=== PATIENT | male | born 1955 | race Caucasian/White ===

== ENCOUNTER 2016-07-07 17:25 | Emergency (ER) | payer OTHER ==
[~2016-07-07] VITALS: Ht 182.9 cm; Wt 110.0 kg
[~2016-07-07 17:25] MED LIST: ASPI325T32 PO; AZIT250T94 PO; CHOL20003 PO; CLOP75TA27 PO; EMPA1TAB3 PO; GLIM4TAB PO; GLUC100015 PO; HYDR-906 PO; IBUP-1542 PO; INSU100C SC; LEVEM SC; LISI-313 PO; METF1000 PO; METO-448 PO; OMEG-135 PO; OMEG500C PO; ROSU5TAB5 PO; SITA100T8 PO
[2016-07-07 17:27] VITALS: Ht 182.9 cm; Wt 110.0 kg
[2016-07-07] MEDS ORDERED: SOD CHLORIDE 0.9% 1,000 ML IV ONE (17:46)
[2016-07-07] MEDS ORDERED: KETOROLAC 30 MG INJ IV STA (17:46)
[2016-07-07 18:16] LABS: ADD SCAN DIFF NO
[2016-07-07 18:21] LABS: BASOPHIL # 0.1 10^3/ul (0.0-0.1); BASOPHILS % 0.6 % (0.0-2.0); EOSINOPHILS # 0.2 10^3/ul (0.0-0.5); EOSINOPHILS % 2.7 % (0.0-7.0); HEMOGLOBIN 16.8 g/dl (14.0-18.0); LYMPHOCYTES # 0.8 10^3/ul (0.8-2.9); LYMPHOCYTES % 8.6 % (15.0-51.0); MEAN CORPUSCULAR HEMOGLOBIN 31.3 pg (29.0-33.0); MEAN CORPUSCULAR HGB CONC 33.6 g/dl (32.0-37.0); MEAN CORPUSCULAR VOLUME 93.3 fl (82.0-101.0); MEAN PLATELET VOLUME 9.3 fl (7.4-10.4); MONOCYTES % 10.8 % (0.0-11.0); NEUTROPHIL # 6.8 10^3/ul (1.6-7.5); PLATELET COUNT 205 10^3/UL (140-415); RED BLOOD COUNT 5.36 10^6/ul (4.70-6.10); RED CELL DISTRIBUTION WIDTH 12.9 % (11.5-14.5); WHITE BLOOD COUNT 8.8 10^3/ul (4.8-10.8)
[2016-07-07 18:38] LABS: ALBUMIN 4.7 g/dl (3.3-4.9)
[2016-07-07 18:41] LABS: BILIRUBIN,INDIRECT 0.4 mg/dl (0-1.1); BILIRUBIN,TOTAL 0.4 mg/dl (0.2-1.3); CREATININE 1.13 mg/dl (0.61-1.24)
[2016-07-07 18:42] LABS: ALBUMIN/GLOBULIN RATIO 1.09; CALCIUM 9.9 mg/dl (8.4-10.2)
--- NOTE | 2016-07-07 18:45 | RADRPT ---
PROCEDURE: XR Chest 1 View. CLINICAL INDICATION: Shortness of breath. TECHNIQUE: AP view of the chest was obtained. COMPARISON: None. FINDINGS: The cardiomediastinal silhouette is within normal limits. Mild elevation right hemidiaphragm is iden tified. Subsegmental atelectasis is seen in the bilateral lower lobes. No consolidations are identi fied. No pneumothorax is seen. Osseous structures are intact. IMPRESSION: Mild elevation right hemidiaphragm. Subsegmental atelectasis in the bilateral lower lobes. RPTAT: AA .Andrzej Johnson MD, MD Date Time Electronically viewed and signed by .Andrzej Johnson MD, MD on 07/07/2016 18:44 .P/
[2016-07-07] MEDS ORDERED: IBUP-1542 PO (18:54)
[2016-07-07] MEDS ORDERED: PROM5SYR2 PO (18:54)
[2016-07-07] MEDS ORDERED: AZIT250T94 PO (18:55)
--- NOTE | 2016-07-07 18:58 | ERD ---
ER Documentation Chief Complaint Date/Time DATE: 07/07/16 TIME: 18:56 Chief Complaint flu like symptoms x 10 days, fever, cough,body aches HPI This 6-year-old male complains of cough for last 10 days. He does have a fever with body aches worsening over the last 3 days. Denies any sustained chest pain , vomiting, abdominal pain. He has body aches as well as bitemporal headache. ROS All systems reviewed and are negative except as per history of present illness. Medications Home Meds Active Scripts Azithromycin* (Zithromax*) 250 Mg Tablet, 250 MG PO .MarcPAROSETTA DIRECTED, #6 TAB TAKE 500 MG (2 TABS) THE FIRST DAY THEN 250 MG (1 TAB) DAYS 2-5 Prov:OLGA LEIJA MD 07/07/16 Promethazine HCl/Codeine (Prometh-Codein 6.25-10 mg/5 ml) 5 Ml Syrup, 5 ML PO TID for 4 Days 4 oz Prov:OLGA LEIJA MD 07/07/16 Ibuprofen* (Motrin*) 600 Mg Tab, 600 MG PO Q6, #20 TAB Prov:OLGA LEIJA MD 07/07/16 Ibuprofen* (Motrin*) 600 Mg Tab, 600 MG PO Q6H Y for PAIN AND OR ELEVATED TEMP, #30 TAB Prov:AZALEA SUE 01/10/16 Hydrocodone/Acetaminophen ([place] 5-325 Tablet) 1 Each Tablet, 1 TAB PO Q6H Y for PAIN, #7 TAB Prov:AZALEA SUE 01/10/16 Azithromycin* (Zithromax*) 250 Mg Tablet, 250 MG PO .MarcPAROSETTA DIRECTED, #6 TAB TAKE 500 MG (2 TABS) THE FIRST DAY THEN 250 MG (1 TAB) DAYS 2-5 Prov:AZALEA SUE 01/10/16 Fish Oil* (Fish Oil*) 1,000 Mg Cap, 1000 MG PO BID for 14 Days, CAP Prov:VIJAY CRAIG MD 07/16/15 Lisinopril* (Lisinopril*) 5 Mg Tablet, 5 MG PO DAILY, #30 TAB Prov:MELLY ESCOBEDO 07/10/15 Aspirin (Aspir-Lena) 325 Mg Tablet.dr, 325 MG PO DAILY for 30 Days, #30 Prov:SADEORA,MELLY 07/10/15 Metoprolol Tartrate* (Lopressor*) 25 Mg Tab, 25 MG PO BID for 30 Days, #60 TAB Prov:MELLY ESCOBEDO 07/10/15 Clopidogrel Bisulfate (Clopidogrel) 75 Mg Tablet, 75 MG PO DAILY for 30 Days, # 30 TAB Prov:MELLY ESCOBEDO 07/10/15 Reported Medications Glucosamine Sulfate 2KCL (GLUCOSAMINE) 1,000 Mg Tablet, 2000 MG PO DAILY, TAB 07/15/15 Metformin Hcl* (Metformin Hcl*) 1,000 Mg Tablet, 1000 MG PO WITH BREAKFAST DINNE , #60 TAB 07/15/15 [place]-3 Fatty Acids (Fish Oil) 500 Mg Capsule.dr, 1000 MG PO TID 07/10/15 Ibuprofen* (Ibuprofen*) 600 Mg Tablet, 600 MG PO Q6 for PAIN LEVEL 1-3, TAB 07/10/15 Empagliflozin/Linagliptin (Glyxambi 10 mg-5 mg Tablet) 1 Each Tablet, 1 EACH PO DAILY, TAB 07/10/15 Rosuvastatin Calcium* (Crestor*) 5 Mg Tablet, 1 TAB PO QHS, #30 TAB 07/10/15 Insulin Lispro (Humalog) 100 U/Ml Cartridge, 0 SC SLIDING SCALE AC, EA 05/04/14 Insulin Detemir* (Levemir*) 100 U/Ml Vial, 30 UNIT SC DAILY, VIAL 05/04/14 Sitagliptin* (Januvia*) 100 Mg Tablet, 100 MG PO DAILY, TAB 05/04/14 Cholecalciferol (Vitamin D3) (VITAMIN D-3) 2,000 Unit Capsule, 2000 UNIT PO DAILY 05/04/14 Glimepiride* (Glimepiride*) 4 Mg Tablet, 4 MG PO WITH BREAKFAST DINNE, TAB 05/04/14 Allergies Allergies: Coded Allergies: No Known Allergy (Unverified , 01/10/16) PMhx/Soc History of Surgery: Yes (STENT PLACEMENT) Anesthesia Reaction: No Hx Neurological Disorder: Yes (BELLS PALSY) Hx Respiratory Disorders: No Hx Cardiac Disorders: Yes (HTN, STEMI ) Hx Psychiatric Problems: Yes (DEPRESSION) Hx Miscellaneous Medical Probl: Yes (TYPE 2 DM) Hx Alcohol Use: No Hx Substance Use: No Hx Tobacco Use: No Physical Exam Vitals Vital Signs Date Time Temp Pulse Resp B/P Pulse Ox O2 Delivery O2 Flow Rate FiO2 07/07/16 17:27 100.9 100 20 159/83 99 Physical Exam Const: [] Alert, no apparent distress although uncomfortable due to presumed general malaise per Head: Atraumatic Eyes: Normal Conjunctiva ENT: Normal External Ears, Nose and Mouth. TMs and oropharynx normal. Neck: Full range of motion..~ No meningismus. Resp: Clear to auscultation bilaterally. Slight rhonchi without rales or wheezing appreciated. Cardio: Regular rate and rhythm, no murmurs Abd: Soft, non tender, non distended. Normal bowel sounds Skin: No petechiae or rashes Back: No midline or flank tenderness Ext: No cyanosis, or edema Neur: Awake and alert Psych: Normal Mood and Affect Result Diagram: 07/07/16174407/07/161744 Results 24 hrs Laboratory Tests Test 07/07/16 17:45 White Blood Count 8.810^3/ul Red Blood Count 5.3610^6/ul Hemoglobin 16.8g/dl Hematocrit 50.0% Mean Corpuscular Volume 93.3fl Mean Corpuscular Hemoglobin 31.3pg Mean Corpuscular Hemoglobin Concent 33.6g/dl Red Cell Distribution Width 12.9% Platelet Count 65046^3/UL Mean Platelet Volume 9.3fl Neutrophils % 77.0% Lymphocytes % 8.6% Monocytes % 10.8% Eosinophils % 2.7% Basophils % 0.6% Nucleated Red Blood Cells % 0.0/100WBC Neutrophils # 6.810^3/ul Lymphocytes # 0.810^3/ul Monocytes # 1.010^3/ul Eosinophils # 0.210^3/ul Basophils # 0.110^3/ul Nucleated Red Blood Cells # 0.010^3/ul Sodium Level 141mmol/L Potassium Level 4.0mmol/L Chloride Level 98mmol/L Carbon Dioxide Level 26mmol/L Anion Gap 21 Blood Urea Nitrogen 19mg/dl Creatinine 1.13mg/dl Glucose Level 110mg/dl Calcium Level 9.9mg/dl Total Bilirubin 0.4mg/dl Direct Bilirubin 0.00mg/dl Indirect Bilirubin 0.4mg/dl Aspartate Amino Transf (AST/SGOT) 41IU/L Alanine Aminotransferase (ALT/SGPT) 42IU/L Alkaline Phosphatase 115IU/L Total Protein 9.0g/dl Albumin 4.7g/dl Globulin 4.30g/dl Albumin/Globulin Ratio 1.09 Current Medications Medications (Trade) Dose Ordered Sig/Edwige Route PRN Reason Start Time Stop Time Status Last Admin Dose Admin Ketorolac Tromethamine 30 mg 30 mg ONCE STAT IV 07/07/16 17:46 07/07/16 17:49 DC 07/07/16 17:57 Sodium Chloride (NS) 1,000 ml @ 0 mls/hr Q0M ONCE IV 07/07/16 17:46 07/07/16 17:49 DC 07/07/16 17:58 Procedures/MDM EKG: Rate/Rhythm: [Normal Sinus Rhythm] rate equals 101 QRS, ST, T-waves: [No changes consistent w/ acute ischemia] Impression: [No evidence of ischemia or arrhythmia]. Patient have a normal EKG except for mild sinus tachycardia. Chest X-ray 1V Interpreted by me: Soft Tissue: No acute abnormalities Bones: No acute abnormalities Mediastinum/Cardiac Silhouette/Lungs: [No acute abnormalities]. Impression- no acute findings on chest x-ray. Patient's tachycardia febrile illness and duration of symptoms and uncomfortable appearance and IV was obtained. Patient was given 1 L normal saline IV, CBC is normal shows a viral pattern. CMP is normal. Blood cultures 2 pending. Patient felt better after observation treatment. Patient presents with worsening fever and URI symptoms over the last 10 days. Examination today is consistent with an acute viral illness also given duration will be treated with Zithromax and continued fever control. There is no evidence of hypoxemia or respiratory distress and tachycardia likely due to low-grade fever triage without evidence of sepsis after observation treatment. The patient was stable with no new complaints during the ER course. Clinically, there is no current evidence to suggest meningitis, sepsis, acute abdomen, pneumonia, acute coronary syndrome, pulmonary embolism, or any other emergent condition appearing to require further evaluation or hospitalization. The patient should certainly return for any new or worsening symptoms per the aftercare instructions. They should otherwise follow-up with her primary care doctor for reevaluation this week. Departure Diagnosis: Primary Impression: Fever Fever type: unspecified Qualified Code: R50.9 - Fever, unspecified fever cause Additional Impression: Upper respiratory infection URI type: unspecified URI Qualified Code: J06.9 - Upper respiratory tract infection, unspecified type Patient Instructions: Acute Bronchitis, Fever Control (Adult), Influenza (Adult ) Additional Instructions: Labs to suggest viral illness such as influenza. We will treat for bacterial infection given the duration. Recheck with primary doctor or for new or worsening symptoms. Okay to take Tylenol every 4 hours as well for fever per OLGA LEIJA MD July 07, 2016 18:58
[2016-07-07 19:11] VITALS: BP 136/67; PULSE 95; RESP 20; TEMP 98.9
== END 2016-07-07 19:10 | disposition home or self-care (01) ==
LOC: FTE 17:25
DX: R50.9 Fever, unspecified (principal); J06.9 Acute upper respiratory infection, unspecified; I10 Essential (primary) hypertension; E11.9 Type 2 diabetes mellitus without complications; Z79.01 Long term (current) use of anticoagulants; Z79.4 Long term (current) use of insulin; Z79.82 Long term (current) use of aspirin; Z79.84 Long term (current) use of oral hypoglycemic drugs; Z98.61 Coronary angioplasty status
CPT/HCPCS: 36415; 71010; 80053; 85025; 87040; 93005; 96374; J1885; J7030; Z7502

== ENCOUNTER 2017-01-28 19:26 | Inpatient (IN) | payer OTHER ==
[~2017-01-28] VITALS: Ht 182.9 cm; Wt 110.3 kg
[~2017-01-28 19:26] MED LIST changes: -CHOL20003 PO; +CHOL200073 PO; +PROM5SYR2 PO
--- NOTE | 2017-01-28 21:53 | HP ---
Date/Time of Note Date/Time of Note DATE: 01/28/17 TIME: 21:52 Assessment/Plan VTE Prophylaxis VTE Prophylaxis Intervention: SCD's Assessment/Plan Chief Complaint/Hosp Course This is a 61-year-old male being admitted to the telemetry floor for: #1 chest pain: Rule out ACS. Patient has CAD risk factors as well as previous angioplasty. At the current time will trend cardiac troponins, first set at the transferring facility was negative. Will check an echocardiogram in the a.m. Will consult patient's animal pathology teacher Dr. Ibrahim. #2 CAD: Patient has a history of angioplasty one stent. At the current time we will continue aspirin, beta-rhea, Plavix, statin. Will provide as needed nitro and morphine for pain. #3 Hyperlipidemia: Check lipid panel, will continue statin #4 diabetes mellitus: At the current time will hold patient's oral medications. Will put patient on insulin sliding scale, diabetic diet #5 obstructive sleep apnea: Patient is requesting if he can use his home CPAP machine the family will bring in this is fine with me. #6 DVT GI prophylaxis: SCDs, no GI prophylaxis indicated for the treatment strategy will be implemented as per the clinical course Problems: HPI/ROS Admit Date/Time Admit Date/Time Jan 28, 2017 at 21:13 Hx of Present Illness cc: Chest pain 1 day This is a 61-year-old male who was transferred from [facility] complaining of chest pain. Patient stated that he was shopping earlier in the day and started feeling pain in his epigastric area that then radiated up and across to the left and right chest into his back. He stated that the pain continued for some time until he arrived at the ER at [facility]. The pain went away on its own without any medication. He stated the pain was sharp in nature similar to when he first had his heart attack last year however the pain was not as intense today as it was last year. He denies any diaphoresis or shortness of breath or lower extremity edema. Allergies: NKDA Medications: See ROBERT ECHEVARRIA Const: As per HPI Eyes : No pain discharge or redness or change in visual acuity ENT: No pain, sore throat, congestion, congestion, dysphagia or discharge Respiratory: No shortness of breath, cough, sputum, wheezing, or pleuritic pain Cardiovascular: As per HPI GI : no change in appetite, abdominal pain, nausea, vomiting, diarrhea, constipation, or change in the color his stool Genitourinary: No dysuria, hematuria, flank pain , discharge or CVA tenderness Musculoskeletal: No joint pain, back pain, neck pain, restricted range of motion in neck or joints Skin: No rash, bruising or hives Neuro: No headache, dizziness, syncope, seizure, focal weakness Endocrine: No polyuria, polydipsia, temperature intolerance Psych: No hallucination, depression, anxiety or suicidal ideation PMH/Family/Social Past Medical History cad, dm, tamia, hld, Past Surgical History cardiac stent x 1, umbilical hernia repair Family History Significant Family History: no pertinent family hx Social History Alcohol Use: none Smoking Status: Never smoker Drug Use: none Exam/Review of Systems Exam Exam General: This is a pleasant, obese male lying in bed in no acute distress HEENT: Atraumatic, normocephalic. The pupils are equal, round and reactive. Extraocular motor are intact Neck: Supple with full range of motion. No rigidity or meningismus Chest: Nontender Lungs: Clear to auscultation bilaterally no crackles rales or wheezing Heart: Normal S1-S2, Regular rhythm and rate. No overt murmurs appreciated on auscultation Abdomen: Soft , nontender, nondistended , bowel sounds are present. No guarding no rebound tenderness , No masses or organomegaly. No costovertebral temporal angle mass Extremities: Trace lower extremity edema at the level of the ankles Neurologic: Normal mental status, speech normal, cranial nerves II through XII are intact, motor and sensory are intact, no focal weakness Additional Comments Pertinent laboratory findings from transferring facility are below, please see transfer documentation for full report. Troponin: First set negative EKG: Normal sinus rhythm with no overt ST or T-wave normality noted Chest x-ray: No acute process, cardiomegaly CHARLES VIEYRA Jan 28, 2017 21:53
[2017-01-28 22:00] VITALS: BP 145/78; RESP 18
[2017-01-28] MEDS ORDERED: DOCUSATE SODIUM 100 MG CAP PO PRN (22:00)
[2017-01-28] MEDS ORDERED: ONDANSETRON 4 MG TAB PO PRN (22:00)
[2017-01-28] MEDS ORDERED: morphine 2 MG INJ IV PRN (22:00)
[2017-01-28] MEDS ORDERED: NACL 0.9% 3 ML SYG IV SCH (22:00)
[2017-01-28] MEDS ORDERED: ACETAMINOPHEN 325 MG TAB PO PRN (22:00)
[2017-01-28] MEDS ORDERED: BISACODYL (EC) 5 MG TAB PO PRN (22:00)
[2017-01-28] MEDS ORDERED: NITROGLYCERIN (SL) 0.4 MG TAB SL PRN (22:00)
[2017-01-28 22:03] VITALS: Ht 182.9 cm; Wt 110.3 kg
[2017-01-28 22:28] VITALS: PULSE 87
[2017-01-28 22:41] LABS: BASOPHIL # 0.1 10^3/ul (0.0-0.1); BASOPHILS % 1.1 % (0.0-2.0); EOSINOPHILS # 0.4 10^3/ul (0.0-0.5); EOSINOPHILS % 5.8 % (0.0-7.0); HEMATOCRIT 43.9 % (42.0-52.0); HEMOGLOBIN 14.9 g/dl (14.0-18.0); LYMPHOCYTES # 1.5 10^3/ul (0.8-2.9); LYMPHOCYTES % 24.4 % (15.0-51.0); MEAN CORPUSCULAR HEMOGLOBIN 31.2 pg (29.0-33.0); MEAN CORPUSCULAR HGB CONC 33.9 g/dl (32.0-37.0); MEAN CORPUSCULAR VOLUME 91.8 fl (82.0-101.0); MEAN PLATELET VOLUME 9.5 fl (7.4-10.4); MONOCYTE # 0.6 10^3/ul (0.3-0.9); MONOCYTES % 9.6 % (0.0-11.0); NEUTROPHIL # 3.6 10^3/ul (1.6-7.5); NEUTROPHILS % 58.6 % (39.0-77.0); PLATELET COUNT 167 10^3/UL (140-415); RED BLOOD COUNT 4.78 10^6/ul (4.70-6.10); RED CELL DISTRIBUTION WIDTH 13.3 % (11.5-14.5); WHITE BLOOD COUNT 6.2 10^3/ul (4.8-10.8)
[2017-01-28 23:04] LABS: CREATINE KINASE 158 IU/L (23-200)
[2017-01-28 23:06] LABS: ALBUMIN 4.4 g/dl (3.3-4.9); ALBUMIN/GLOBULIN RATIO 1.46; BILIRUBIN,INDIRECT 0.2 mg/dl (0-1.1); BILIRUBIN,TOTAL 0.2 mg/dl (0.2-1.3); CALCIUM 9.5 mg/dl (8.4-10.2); CHOL/HDL RATIO 4.2 RATIO; CREATININE 1.1 mg/dl (0.61-1.24); MAGNESIUM 2.1 mg/dl (1.7-2.5); POTASSIUM 4.5 mmol/L (3.5-5.1); TOTAL PROTEIN 7.4 g/dl (6.1-8.1)
[2017-01-28 23:19] LABS: CK-MB 1.29 ng/ml (0.0-2.4); TROPONIN-I < 0.012 ng/ml (0.00-0.12)
[2017-01-29] VITALS (11 sets, daily range): BP systolic 123–140; BP diastolic 57–78; PULSE 68–91; RESP 17–20
[2017-01-29 00:05] LABS: THYROID STIMULATING HORMONE 2.15 MIU/L (0.465-4.680)
[2017-01-29] MEDS ORDERED: GLUCOSE GEL 15 GRAM TUBE PO PRN ×2 (00:30)
[2017-01-29] MEDS ORDERED: GLUCAGON 1 MG INJ IM PRN (00:30)
[2017-01-29] MEDS ORDERED: DEXTROSE 50% 50 ML SYRINGE IV PRN ×2 (00:30)
[2017-01-29] MEDS ORDERED: GLUCOSE GEL 15 GRAM TUBE BUCCAL PRN (00:30)
[2017-01-29] MEDS: INSULIN DETEMIR [LEVEMIR] 3ML CART SC SCH (01:11)
[2017-01-29] MEDS: INSULIN ASPART [NOVOLOG] 3 ML PEN SC SCH ×5 (01:14→21:00)
[2017-01-29] MEDS: ACCU-CHEK XX SCH (02:37)
[2017-01-29 04:51] LABS: CREATINE KINASE 158 IU/L (23-200)
[2017-01-29 05:23] LABS: CK-MB 1.41 ng/ml (0.0-2.4); TROPONIN-I < 0.012 ng/ml (0.00-0.12)
[2017-01-29] MEDS ORDERED: INSULIN ASPART [NOVOLOG] 3 ML PEN SC SCH (07:55)
[2017-01-29] MEDS: METOPROLOL 25 MG TAB PO SCH ×2 (08:46→21:18)
[2017-01-29] MEDS: CLOPIDOGREL 75 MG TAB PO SCH (08:46)
[2017-01-29] MEDS: ASPIRIN (EC) 325 MG TAB PO SCH (08:46)
[2017-01-29] MEDS: FISH OIL 1,000 MG CAP PO SCH ×2 (08:46→21:17)
[2017-01-29] MEDS: CHOLECALCIFEROL 2,000 UNIT CAP PO SCH (08:47)
[2017-01-29] MEDS ORDERED: FATTY ACIDS PO SCH (09:00)
[2017-01-29] MEDS ORDERED: OMEGA PO SCH (09:00)
[2017-01-29] MEDS ORDERED: INSULIN DETEMIR [LEVEMIR] 3ML CART SC SCH (09:00)
--- NOTE | 2017-01-29 11:08 | PN ---
Date/Time of Note Date/Time of Note DATE: 01/29/17 TIME: 11:04 Assessment/Plan VTE Prophylaxis VTE Prophylaxis Intervention: ambulation Lines/Catheters IV C[facility]ter Type [facility] Saline Lock Assessment/Plan Chief Complaint/Hosp Course 61-year-old male who was transferred from outside hospital for evaluation of sudden onset of chest pain. 1. Chest pain. Status: Acute. - Symptoms resolved. EKG negative for any acute ischemia. Serial troponin 2 negative so far. -Continue aspirin to prevent any cardiac ischemic events, PRN nitro and morphine for pain. -Dr. Ibrahim has been consulted and we will follow-up with recommendations. Please note that patient had a recent Lexiscan stress test and we will obtain records for cardiology review. 2. CAD Status: Chronic -Continue current medical management with aspirin, beta-rhea, Plavix, statin. 3.Hyperlipidemia Status: Chronic. -On statin. 4. Type II diabetes mellitus Status: Chronic. -Continue Accu-Cheks/insulin sliding scale. -Carbohydrate controlled diet. 5. Obstructive sleep apnea Status: Chronic. -Continue home CPAP machine 6. Obesity. Status: Chronic -Lifestyle changes/weight reduction advised. DVT GI prophylaxis: SCDs, no GI prophylaxis indicated at this time. Patient is in collaboration with . Problems: Subjective 24 Hr Interval Summary Free Text/Dictation She is lying in bed comfortably. He denies any chest pain, shortness of breath , palpitation or other distress. Exam/Review of Systems Vital Signs Vitals Vital Signs Date Time Temp Pulse Resp B/P Pulse Ox O2 Delivery O2 Flow Rate FiO2 01/29/17 08:17 70 01/29/17 04:05 98.3 20 140/70 95 Intake and Output 01/28/17 01/28/17 01/29/17 15:00 23:00 07:00 Intake Total 600 ml Balance 600 ml Exam General: Well developed,adequately built, not in any acute distress . HEENT: Normocephalic, Atraumatic, No laceration or hematoma; Eyes: PEERL, Conjunctiva clear, Anicteric sclera Neck: Supple without any lymphadenopathy, nontender, no JVD, no carotid bruits, trachea midline, no thyromegaly Cardiac: S1, S2 auscultated, regular rhythm and rate, no mumurs or gallop Pulmonary: Normal respiratory effort. Chest clear to auscultation bilaterally, no adventitious breath sounds GI: Abdomen normal to inspection. Soft, non tender, non- distended, no masses, no rebound tenderness or guarding. Bowel sounds active on all four quadrants Genitourinary: Deferred Extremities: No cyanosis, clubbing, or edema. Pulses [2+] bilaterally. Full ROM on all four extremities. No focal weakness appreciated. Neurologic: Alert to person, place, time, and situation. Affect appropriate, intact sensation. Skin: Clean,dry, and intact. No ecchymosis, no rashes, or lesions Results Result Diagram: 01/28/17222901/28/172230 Results 24 hrs Laboratory Tests Test 01/28/17 22:30 01/28/17 22:31 01/28/17 23:52 01/29/17 01:26 White Blood Count 6.2 # Red Blood Count 4.78 Hemoglobin 14.9 Hematocrit 43.9 Mean Corpuscular Volume 91.8 Mean Corpuscular Hemoglobin 31.2 Mean Corpuscular Hemoglobin Concent 33.9 Red Cell Distribution Width 13.3 Platelet Count 167 Mean Platelet Volume 9.5 Neutrophils % 58.6 Lymphocytes % 24.4 Monocytes % 9.6 Eosinophils % 5.8 Basophils % 1.1 Nucleated Red Blood Cells % 0.0 Neutrophils # 3.6 Lymphocytes # 1.5 Monocytes # 0.6 Eosinophils # 0.4 Basophils # 0.1 Nucleated Red Blood Cells # 0.0 Hemoglobin A1c 7.6 H Creatine Kinase 158 Creatine Kinase Index 0.8 Creatinine Kinase MB (Mass) 1.29 Troponin I < 0.012 B-Type Natriuretic Peptide 36 Sodium Level 143 Potassium Level 4.5 Chloride Level 105 Carbon Dioxide Level 27 Anion Gap 16 Blood Urea Nitrogen 20 Creatinine 1.10 Glucose Level 201 Calcium Level 9.5 Magnesium Level 2.1 Total Bilirubin 0.2 Direct Bilirubin 0.00 Indirect Bilirubin 0.2 Aspartate Amino Transf (AST/SGOT) 41 Alanine Aminotransferase (ALT/SGPT) 59 Alkaline Phosphatase 76 Total Protein 7.4 Albumin 4.4 Globulin 3.00 Albumin/Globulin Ratio 1.46 Triglycerides Level 426 H Cholesterol Level 148 LDL Cholesterol, Calculated 28 HDL Cholesterol 35 Cholesterol/HDL Ratio 4.2 Thyroid Stimulating Hormone (TSH) 2.150 Bedside Glucose 230 H 166 Test 01/29/17 04:17 01/29/17 08:34 Creatine Kinase 158 Creatine Kinase Index 0.9 Creatinine Kinase MB (Mass) 1.41 Troponin I < 0.012 Bedside Glucose 105 Medications Medications Current Medications Ondansetron HCl (Zofran Tab) 4 mg Q6H PRN PO NAUSEA AND/OR VOMITING; Start 01/28/17 at 22:00 Nitroglycerin (Nitroglycerin (Sl Tab) 0.4 Mg) 1 tab Q5M PRN SL CHEST PAIN; Start 01/28/17 at 22:00 Acetaminophen (Tylenol Tab) 650 mg Q6H PRN PO PAIN LEVEL 1-3 OR FEVER; Start 01/28/17 at 22:00 Morphine Sulfate (morphine) 2 mg Q4H PRN IV PAIN LEVEL 7-10; Start 01/28/17 at 22:00 Docusate Sodium (Colace) 100 mg Q12H PRN PO CONSTIPATION; Start 01/28/17 at 22: 00 Bisacodyl (Dulcolax) 5 mg DAILY PRN PO CONSTIPATION; Start 01/28/17 at 22:00 Aspirin (Ecotrin) 325 mg DAILY PO Last administered on 01/29/17 08:46; Admin Dose 325 MG; Start 01/29/17 at 09:00 Cholecalciferol (Vitamin D) 2,000 unit DAILY PO Last administered on 01/29/17 08:47; Admin Dose 2,000 UNIT; Start 01/29/17 at 09:00 Clopidogrel Bisulfate (plaVIX) 75 mg DAILY PO Last administered on 01/29/17 08 :46; Admin Dose 75 MG; Start 01/29/17 at 09:00 Fish Oil (Fish Oil) 1,000 mg BID PO Last administered on 01/29/17 08:46; Admin Dose 1,000 MG; Start 01/29/17 at 09:00 Metoprolol Tartrate (Lopressor) 25 mg BID PO Last administered on 01/29/17 08: 46; Admin Dose 25 MG; Start 01/29/17 at 09:00 Diagnostic Test (Pha) (Accu-Chek) 1 ea 02 XX Last administered on 01/29/17 02: 37; Admin Dose 1 EA; Start 01/29/17 at 02:00 Miscellaneous Information 1 ea NOTE XX ; Start 01/29/17 at 00:30 Glucose (Glutose) 15 gm Q15M PRN PO DECREASED GLUCOSE; Start 01/29/17 at 00:30 Glucose (Glutose) 22.5 gm Q15M PRN PO DECREASED GLUCOSE; Start 01/29/17 at 00: 30 Dextrose (D50w Syringe) 25 ml Q15M PRN IV DECREASED GLUCOSE; Start 01/29/17 at 00:30 Dextrose (D50w Syringe) 50 ml Q15M PRN IV DECREASED GLUCOSE; Start 01/29/17 at 00:30 Glucagon (Glucagen) 1 mg Q15M PRN IM DECREASED GLUCOSE; Start 01/29/17 at 00:30 Glucose (Glutose) 15 gm Q15M PRN BUCCAL DECREASED GLUCOSE; Start 01/29/17 at 00 :30 Insulin Detemir (Levemir) 30 unit DAILY SC ; Start 01/29/17 at 01:11 KRYSTAL PELAYO NP Jan 29, 2017 11:08
--- NOTE | 2017-01-29 14:21 | CONS ---
DATE OF ADMISSION: 01/28/2017 DATE OF CONSULTATION: 01/29/2017 REASON FOR CONSULTATION: Chest pain, assess for acute coronary syndrome. REQUESTING PHYSICIAN: Dr. Jean from the hospitalist service. HISTORY OF PRESENT ILLNESS: The patient is a 61-year-old male with history of coronary artery disea se with myocardial infarction, status post PTCA and stent placement to right coronary artery in June 2015, dyslipidemia, hypertension, diabetes mellitus who presented with complaints of recurrent subst ernal chest pain described as a pressure-like sensation. Upon arrival, temperature of 97.8, blood p ressure 145/78, pulse 81, respiratory rate 18, saturating 100%. Patient's labs showed white count 6 .2, hemoglobin 14.9, platelet count of 167. Sodium 143, potassium 4.5, creatinine 1.1, BUN 20. Tro ponin negative. LDL 28, HDL 35. TSH 2.1. The patient's electrocardiogram revealed sinus rhythm, r ate of 75, normal axis, normal intervals with lateral biphasic T-wave abnormalities. Patient subseq uently admitted to the floor and since admit to the floor, has had additional troponin return negati ve for 2 negative troponins. The patient denies ongoing chest pain. PAST MEDICAL HISTORY: As above in HPI. The patient states that he follows up with her callisthenics instructor , Dr. Amaro is in [place] near his home and has had a stress test in the last 1 to 2 months. MEDICATIONS CURRENTLY IN HOSPITAL 1. Aspirin 325 mg daily. 2. Plavix 75 mg daily. 3. Vitamin D. 4. Fish oil. 5. Metoprolol 25 mg p.o. b.i.d. 6. Insulin sliding scale 7. Zofran p.r.n. 8. Tylenol p.r.n. 9. Morphine p.r.n. 10. Colace p.r.n. 11. Sublingual nitroglycerin p.r.n. ALLERGIES: NO KNOWN DRUG ALLERGIES. SOCIAL HISTORY: No tobacco, ETOH or illicit drug use. FAMILY HISTORY: No history of cardiac or early CAD. REVIEW OF SYSTEMS: As above in HPI. CONSTITUTIONAL: No fevers, chills. PULMONARY: No current shortness of breath. CARDIOVASCULAR: Intermittent chest pain. GASTROINTESTINAL: No vomiting. GENITOURINARY: No hematuria. MUSCULOSKELETAL: Degenerative joint disease. PSYCHIATRIC: The patient has depression. NEUROLOGIC: No documented history of CVA. PHYSICAL EXAMINATION VITAL SIGNS: Temperature of 98.7, blood pressure 120/70, pulse 76, respiratory rate 17, saturating 96%. GENERAL: The patient is alert, awake, complaining of intermittent substernal chest pain. NECK: JVP approximately 8 cm water. CHEST: Fair air movement throughout. HEART: Regular rate and rhythm. Normal S1, S2, 1/6 systolic murmur, nondisplaced PMI. ABDOMEN: Positive bowel sounds, soft. EXTREMITIES: No pitting edema, 1+ pulses bilaterally, posterior tibial. LABORATORY DATA: As above in HPI. No further labs for my review at this time. IMAGING STUDIES: As above in HPI. No imaging studies for my review at this time. ECG: As above in HPI. No further electrocardiograms for my review at this time. IMPRESSION: 1. Chest pain, assess for acute coronary syndrome. 2. Abnormal electrocardiogram, assess for acute coronary syndrome. 3. History of percutaneous transluminal coronary angioplasty and stent placement 06/2015 to right c oronary artery. 4. History of myocardial infarction with most recently preserved left ventricular ejection fraction by echo at that time approximately 1 year prior. 5. Diabetes mellitus. 6. Hypertension. 7. Dyslipidemia. RECOMMENDATIONS: 1. At this time would maintain patient on telemetry monitoring to follow the rhythm and rate closel y. 2. Continue the patient's current beta rhea and will give patient sublingual nitroglycerin for r ecurrent chest pain and continue the patient's dual antiplatelet therapy with aspirin and Plavix for stent patency and prevention of further cardiovascular events. 3. Check a fasting lipid panel and initiate patient on statin therapy as necessary. 4. Continue the patient's fish oil. 5. Follow the patient's blood sugars closely with ongoing insulin therapy. 6. We will follow the patient's 2D echo for assessment of ejection fraction, wall motion and any ma magen valve abnormalities. 7. We will complete the patient's rule out for myocardial infarction to ensure the patient's chest pain was not due to an acute coronary syndrome or acute myocardial infarction. 8. Followup troponin. 9. Will attempt to obtain the patient's stress test done at his primary callisthenics instructor's office for xavi choi. Thanks for allowing me take part in the care of this patient. I will continue to follow very closel y with you and further recommendations to be made as the patient progresses through his inpatient [facility] clinical course. Dictated By: LEXIE CASTRO/MARY Conf#: [id number] DID#: [id number] CC: CASIMIRO JEAN MD;*EndCC*
--- NOTE | 2017-01-29 14:32 | RADRPT ---
Echocardiogram Report Patient Name: JEB DIANA Gender: Male Date: 1955 Study Date: 29-Jan-2017 Night Order Selector: Lois Barahona [facility] Location: [id number] Ref. Physician: CHARLES VIEYRA Quality: Adequate Procedures: Transthoracic echocardiogram with complete 2D, M-Mode, and doppler examination. Indications: Chest Pain. 2D/M Mode Doppler Measurement Value Normal Ranges Measurement Value Normal Ranges LVIDd 2D 4.4 3.5 - 5.6 cm AV Peak Armen 1.2 m/sec LVIDs 2D 2.5 2.1 - 4.1 cm AV Peak PG 5.8 mmHg LVPWd 2D 1.1 0.6 - 1.1 cm LVOT Peak Armen 1.0 m/sec IVSd 2D 1.1 0.6 - 1.1 cm LVOT Peak PG 3.7 mmHg AoR Diam 2D 3.8 2.0 - 3.7 cm MV E Peak Armen 0.8 m/sec EDV 2D 87.2 cm3 MV A Peak Armen 0.7 m/sec ESV 2D 14.8 cm3 MV E/A 1.1 LA Dimen 2D 3.2 2.3 - 4.0 cm MV Decel Time 222 msec MV Decel Duchesne 4 MV E/A 1.1 TR Peak Armen 2.6 m/sec TR Peak PG 26.5 mmHg RVSP 30.0 mmHg Findings Left Ventricle: Normal left ventricular systolic function. Normal left ventricular cavity size. Mild concentric left ventricular hypertrophy. Ejection fraction is visually estimated at 60 %. Tissue Doppler/Mitral Doppler indices are within normal limits. Right Ventricle: Normal right ventricular size. Normal right ventricular systolic function. Left Atrium: The left atrium is normal in size. Right Atrium: The right atrium is normal in size. Mitral Valve: Normal appearance and function of the mitral valve with trace physiologic regurgitation. Aortic Valve: Normal appearance of the aortic valve. No significant aortic stenosis or insufficiency. Tricuspid Valve: Normal appearance of the tricuspid valve. Estimated peak PA systolic pressure 30 mmHg. There is trace tricuspid regurgitation. Pulmonic Valve: Normal pulmonic valve appearance. Pericardium: Normal pericardium with no significant pericardial effusion. Aorta: Normal aortic root. IVC: Normal size and normal respiratory collapse consistent with normal right atrial pressure. Conclusions 1.Normal left ventricular systolic function. Normal left ventricular cavity size. Mild concentric left ventricular hypertrophy. Ejection fraction is visually estimated at 60 %. Tissue Doppler/Mitral Doppler indices are within normal limits. 2.Normal appearance and function of the mitral valve with trace physiologic regurgitation. 3.Normal appearance of the tricuspid valve. Estimated peak PA systolic pressure 30 mmHg. There is trace tricuspid regurgitation. Electronically Signed By: Cooper Ibrahim 29-Jan-2017 14:32:31 -0800 Patient Name: JEB DIANA Study Date: 29-Jan-2017 [id number]
[2017-01-30] VITALS (7 sets, daily range): BP systolic 115–134; BP diastolic 71–77; PULSE 69–75; RESP 17–21
[2017-01-30] MEDS: ACCU-CHEK XX SCH (02:00)
[2017-01-30] MEDS: INSULIN ASPART [NOVOLOG] 3 ML PEN SC SCH ×2 (07:55→12:26)
[2017-01-30 08:09] LABS: BASOPHIL # 0.1 10^3/ul (0.0-0.1); EOSINOPHILS # 0.3 10^3/ul (0.0-0.5); EOSINOPHILS % 5.8 % (0.0-7.0); HEMATOCRIT 42.9 % (42.0-52.0); HEMOGLOBIN 14.6 g/dl (14.0-18.0); LYMPHOCYTES # 1.5 10^3/ul (0.8-2.9); LYMPHOCYTES % 25.3 % (15.0-51.0); MEAN CORPUSCULAR HEMOGLOBIN 30.9 pg (29.0-33.0); MEAN CORPUSCULAR VOLUME 90.9 fl (82.0-101.0); MEAN PLATELET VOLUME 9.9 fl (7.4-10.4); MONOCYTE # 0.5 10^3/ul (0.3-0.9); MONOCYTES % 8.8 % (0.0-11.0); NEUTROPHIL # 3.5 10^3/ul (1.6-7.5); NEUTROPHILS % 58.8 % (39.0-77.0); PLATELET COUNT 164 10^3/UL (140-415); RED BLOOD COUNT 4.72 10^6/ul (4.70-6.10); RED CELL DISTRIBUTION WIDTH 13.2 % (11.5-14.5); WHITE BLOOD COUNT 5.9 10^3/ul (4.8-10.8)
[2017-01-30 08:32] LABS: CALCIUM 9.2 mg/dl (8.4-10.2); CREATININE 1.02 mg/dl (0.61-1.24); POTASSIUM 3.8 mmol/L (3.5-5.1)
[2017-01-30 08:33] LABS: CHOL/HDL RATIO 3.9 RATIO
[2017-01-30] MEDS: FISH OIL 1,000 MG CAP PO SCH (09:23)
[2017-01-30] MEDS: CHOLECALCIFEROL 2,000 UNIT CAP PO SCH (09:24)
[2017-01-30] MEDS: METOPROLOL 25 MG TAB PO SCH (09:24)
[2017-01-30] MEDS: ASPIRIN (EC) 325 MG TAB PO SCH (09:24)
[2017-01-30] MEDS: CLOPIDOGREL 75 MG TAB PO SCH (09:24)
[2017-01-30] MEDS: INSULIN DETEMIR [LEVEMIR] 3ML CART SC SCH (09:44)
--- NOTE | 2017-01-30 11:31 | CONS ---
Date/Time of Note Date/Time of Note DATE: 01/30/17 TIME: 11:29 Assessment/Plan Assessment/Plan Additional Assessment/Plan 1. Chest pain, assess for acute coronary syndrome r/o MD, - per Dr. Amaro pt had SPECt normal 07/2016 - OK to d/c with outpt f/up with Dr. Amaro next week. 2. Abnormal electrocardiogram, assess for acute coronary syndrome. 3. History of percutaneous transluminal coronary angioplasty and stent placement 06/2015 to right coronary artery. 4. History of myocardial infarction with most recently preserved left ventricular ejection fraction by echo at that time approximately 1 year prior. 5. Diabetes mellitus. 6. Hypertension. 7. Dyslipidemia. Consultation Date/Type/Reason Admit Date/Time Jan 28, 2017 at 21:13 Initial Consult Date 24 HR Interval Summary Free Text/Dictation per Dr. Amaro pt had SPECT normal 07/2016 - OK to d/c with outpt f/up with Dr. Amaro next week. ROS: No fever, no chills, no nausea, no vomiting, no diarrhea/constipation No recent weight changes No chest pain, no PND, no orthopnea No dizziness, blurred vision No thirst, no heat or cold intolerance Exam/Review of Systems Vital Signs Vitals Vital Signs Date Time Temp Pulse Resp B/P Pulse Ox O2 Delivery O2 Flow Rate FiO2 01/30/17 08:11 72 01/30/17 07:10 97.8 17 120/73 97 Intake and Output 01/29/17 01/29/17 01/30/17 15:00 23:00 07:00 Intake Total 750 ml 300 ml Balance 750 ml 300 ml Exam General: WN/WD/NAD, AOx 3 HEENT: Unicetric/atraumatic/EOMI (follows commands) NECK: JVD elevated, no thyromegaly Lymph: no lymphadenopathy HEART: regular with no S3, II/ systolic murmur at apex LUNGS: Coarse sounds ABD: soft, NT, ND, +BS : Intact Neuro: non focal SKIN: chronic changes EXT: trace edema Results Result Diagram: 01/30/17 0720 01/30/17 0720 Results 24 hrs Laboratory Tests Test 01/29/17 12:06 01/29/17 17:58 01/29/17 21:19 01/30/17 07:20 Bedside Glucose 167 131 162 White Blood Count 5.9 Red Blood Count 4.72 Hemoglobin 14.6 Hematocrit 42.9 Mean Corpuscular Volume 90.9 Mean Corpuscular Hemoglobin 30.9 Mean Corpuscular Hemoglobin Concent 34.0 Red Cell Distribution Width 13.2 Platelet Count 164 Mean Platelet Volume 9.9 Neutrophils % 58.8 Lymphocytes % 25.3 Monocytes % 8.8 Eosinophils % 5.8 Basophils % 1.0 Nucleated Red Blood Cells % 0.0 Neutrophils # 3.5 Lymphocytes # 1.5 Monocytes # 0.5 Eosinophils # 0.3 Basophils # 0.1 Nucleated Red Blood Cells # 0.0 Sodium Level 142 Potassium Level 3.8 Chloride Level 105 Carbon Dioxide Level 27 Anion Gap 14 Blood Urea Nitrogen 21 H Creatinine 1.02 Glucose Level 117 # Calcium Level 9.2 Magnesium Level 2.0 Triglycerides Level 206 H Cholesterol Level 129 LDL Cholesterol, Calculated 55 # HDL Cholesterol 33 Cholesterol/HDL Ratio 3.9 Test 01/30/17 08:06 Bedside Glucose 113 Medications Medications Current Medications Ondansetron HCl (Zofran Tab) 4 mg Q6H PRN PO NAUSEA AND/OR VOMITING; Start 01/28/17 at 22:00 Nitroglycerin (Nitroglycerin (Sl Tab) 0.4 Mg) 1 tab Q5M PRN SL CHEST PAIN; Start 01/28/17 at 22:00 Acetaminophen (Tylenol Tab) 650 mg Q6H PRN PO PAIN LEVEL 1-3 OR FEVER; Start 01/28/17 at 22:00 Morphine Sulfate (morphine) 2 mg Q4H PRN IV PAIN LEVEL 7-10; Start 01/28/17 at 22:00 Docusate Sodium (Colace) 100 mg Q12H PRN PO CONSTIPATION; Start 01/28/17 at 22: 00 Bisacodyl (Dulcolax) 5 mg DAILY PRN PO CONSTIPATION; Start 01/28/17 at 22:00 Aspirin (Ecotrin) 325 mg DAILY PO Last administered on 01/30/17 09:24; Admin Dose 325 MG; Start 01/29/17 at 09:00 Cholecalciferol (Vitamin D) 2,000 unit DAILY PO Last administered on 01/30/17 09:24; Admin Dose 2,000 UNIT; Start 01/29/17 at 09:00 Clopidogrel Bisulfate (plaVIX) 75 mg DAILY PO Last administered on 01/30/17 09 :24; Admin Dose 75 MG; Start 01/29/17 at 09:00 Fish Oil (Fish Oil) 1,000 mg BID PO Last administered on 01/30/17 09:23; Admin Dose 1,000 MG; Start 01/29/17 at 09:00 Metoprolol Tartrate (Lopressor) 25 mg BID PO Last administered on 01/30/17 09: 24; Admin Dose 25 MG; Start 01/29/17 at 09:00 Diagnostic Test (Pha) (Accu-Chek) 1 ea 02 XX Last administered on 01/29/17 02: 37; Admin Dose 1 EA; Start 01/29/17 at 02:00 Miscellaneous Information 1 ea NOTE XX ; Start 01/29/17 at 00:30 Glucose (Glutose) 15 gm Q15M PRN PO DECREASED GLUCOSE; Start 01/29/17 at 00:30 Glucose (Glutose) 22.5 gm Q15M PRN PO DECREASED GLUCOSE; Start 01/29/17 at 00: 30 Dextrose (D50w Syringe) 25 ml Q15M PRN IV DECREASED GLUCOSE; Start 01/29/17 at 00:30 Dextrose (D50w Syringe) 50 ml Q15M PRN IV DECREASED GLUCOSE; Start 01/29/17 at 00:30 Glucagon (Glucagen) 1 mg Q15M PRN IM DECREASED GLUCOSE; Start 01/29/17 at 00:30 Glucose (Glutose) 15 gm Q15M PRN BUCCAL DECREASED GLUCOSE; Start 01/29/17 at 00 :30 Insulin Detemir (Levemir) 30 unit DAILY SC Last administered on 01/30/17 09:44 ; Admin Dose 30 UNIT; Start 01/29/17 at 01:11 TAYA RYDER MD Jan 30, 2017 11:31
--- NOTE | 2017-01-30 12:05 | PDOCDIS ---
Discharge Instructions CONDITION Patient Condition: Stable HOME CARE INSTRUCTIONS: Special Diet: carb controlled FOLLOW UP/APPOINTMENTS Follow-up Plan Follow-up with outpatient breeder hen service technician Dr. Amaro in 1 week. .Follow up with primary care physician in 1 week If you don't have one please let someone know, we can give you resources that may help you pick one. You may also call your insurance company to assign one to you. Review your medication list with your nurse before leaving and if you need new prescriptions please let your nurse know. I may have made changes to your home medications or given you new prescriptions, please let your primary doctor know as well. Stay compliant with your medications and report any side effects to your PCP or pharmacist. Return to the ER if you have any concerns and cannot reach your doctors or call your insurance company, they usually have a nurse that can help you. . Call 911 or go to the nearest emergency room if experiencing loss of consciousness, dizziness, chest pain, shortness of breath, vomiting/abdominal pain, speech difficulties, motor weakness or any unusual symptoms. KRYSTAL PELAYO NP Jan 30, 2017 12:05
--- NOTE | 2017-01-30 12:09 | DS ---
Date/Time of Note Date/Time of Note DATE: 01/30/17 TIME: 12:09 Discharge Summary Admission/Discharge Info Admit Date/Time Jan 28, 2017 at 21:13 Discharge Date/Time Discharge Diagnosis 1. Chest pain, noncardiac. Likely muscular skeletal. 2. CAD, percutaneous transluminal coronary angioplasty and stent placement 2015 to right coronary artery. 3.Hyperlipidemia 4.Type II diabetes mellitus 5. Obstructive sleep apnea. use CPAP machine 6. Obesity. Patient Condition: Stable Consults Dr. Ibrahim, cardiology Hospital Course This is a 61-year-old male with a past medical history of coronary artery disease, percutaneous transluminal coronary angioplasty and stent placement 2015 to right coronary artery., hyperlipidemia, type 2 diabetes, obstructive sleep apnea, obesity, who was transferred from outside hospital for evaluation of chest pain. He was continued on his home medication for underlying comorbid/ chronic conditions. Patient had negative workup for workup was negative for acute coronary syndrome. He had negative EKG, negative serial troponins. Patient was also evaluated by cardiology. He also had a recent negative Lexiscan stress test with his outpatient actuary in July 2016 which was reviewed by our cardiology colleagues. Patient also had echo study with a normal ejection fraction. At this time, patient is feeling back to his baseline. There was no further chest pain reported. Etiology of chest pain is atypical and noncardiac. He was able to tolerate diet and activities well. His labs and vital signs remained stable. There is no further cardiology workup indicated and patient is medically stable for discharge from cardiology standpoint. Patient to follow -up with his actuary in 1 week as outpatient. Patient verbalized discharge instructions. Approximately 60 minutes was spent in coordinating the discharge on this patient. Patient is seen in collaboration with . Home Meds Active Scripts Fish Oil* (Fish Oil*) 1,000 Mg Cap, 1000 MG PO BID for 14 Days, CAP Prov:VIJAY CRAIG MD 07/16/15 Aspirin (Aspir-Lena) 325 Mg Tablet.dr 325 MG PO DAILY for 30 Days, #30 Prov:MELLY ESCOBEDO 07/10/15 Metoprolol Tartrate* (Lopressor*) 25 Mg Tab, 25 MG PO BID for 30 Days, #60 TAB Prov:MELLY ESCOBEDO 07/10/15 Clopidogrel Bisulfate (Clopidogrel) 75 Mg Tablet, 75 MG PO DAILY for 30 Days, # 30 TAB Prov:ABHI ESCOBEDOBIR 07/10/15 Reported Medications Metformin Hcl* (Metformin Hcl*) 1,000 Mg Tablet, 1000 MG PO WITH BREAKFAST DINNE , #60 TAB 07/15/15 [place]-3 Fatty Acids (Fish Oil) 500 Mg Capsule.dr, 1000 MG PO TID 07/10/15 Insulin Lispro (Humalog) 100 U/Ml Cartridge, 0 SC SLIDING SCALE AC, EA 05/04/14 Insulin Detemir* (Levemir*) 100 U/Ml Vial, 30 UNIT SC DAILY, VIAL 05/04/14 Sitagliptin* (Januvia*) 100 Mg Tablet, 100 MG PO DAILY, TAB 05/04/14 Cholecalciferol (Vitamin D3) (VITAMIN D-3) 2,000 Unit Capsule, 2000 UNIT PO DAILY 05/04/14 Discontinued Reported Medications Ibuprofen* (Ibuprofen*) 600 Mg Tablet, 600 MG PO Q6 for PAIN LEVEL 1-3, TAB 07/10/15 Empagliflozin/Linagliptin (Glyxambi 10 mg-5 mg Tablet) 1 Each Tablet, 1 EACH PO DAILY, TAB 07/10/15 Glimepiride* (Glimepiride*) 4 Mg Tablet, 4 MG PO WITH BREAKFAST DINNE, TAB 05/04/14 Glucosamine Sulfate 2KCL (GLUCOSAMINE) 1,000 Mg Tablet, 2000 MG PO DAILY, TAB 07/15/15 Rosuvastatin Calcium* (Crestor*) 5 Mg Tablet, 1 TAB PO QHS, #30 TAB 07/10/15 Discontinued Scripts Ibuprofen* (Motrin*) 600 Mg Tab, 600 MG PO Q6, #20 TAB Prov:OLGA LEIJA MD 07/07/16 Ibuprofen* (Motrin*) 600 Mg Tab, 600 MG PO Q6H Y for PAIN AND OR ELEVATED TEMP, #30 TAB Prov:AZALEA SUE 01/10/16 Azithromycin* (Zithromax*) 250 Mg Tablet, 250 MG PO .QUIN DIRECTED, #6 TAB TAKE 500 MG (2 TABS) THE FIRST DAY THEN 250 MG (1 TAB) DAYS 2-5 Prov:OLGA LEIJA MD 07/07/16 Promethazine HCl/Codeine (Prometh-Codein 6.25-10 mg/5 ml) 5 Ml Syrup, 5 ML PO TID for 4 Days 4 oz Prov:OLGA LEIJA MD 07/07/16 Hydrocodone/Acetaminophen ([place] 5-325 Tablet) 1 Each Tablet, 1 TAB PO Q6H Y for PAIN, #7 TAB Prov:AZALEA SUE 01/10/16 Azithromycin* (Zithromax*) 250 Mg Tablet, 250 MG PO .ZPACK DIRECTED, #6 TAB TAKE 500 MG (2 TABS) THE FIRST DAY THEN 250 MG (1 TAB) DAYS 2-5 Prov:AZALEA SUE 01/10/16 Lisinopril* (Lisinopril*) 5 Mg Tablet, 5 MG PO DAILY, #30 TAB Prov:MELLY ESCOBEDO 07/10/15 Follow-up Plan Follow-up with outpatient actuary Dr. Amaro in 1 week. .Follow up with primary care physician in 1 week If you don't have one please let someone know, we can give you resources that may help you pick one. You may also call your insurance company to assign one to you. Review your medication list with your nurse before leaving and if you need new prescriptions please let your nurse know. I may have made changes to your home medications or given you new prescriptions, please let your primary doctor know as well. Stay compliant with your medications and report any side effects to your PCP or pharmacist. Return to the ER if you have any concerns and cannot reach your doctors or call your insurance company, they usually have a nurse that can help you. . Call 911 or go to the nearest emergency room if experiencing loss of consciousness, dizziness, chest pain, shortness of breath, vomiting/abdominal pain, speech difficulties, motor weakness or any unusual symptoms. Primary Care Provider [facility] Pending Labs Laboratory Tests Test 01/29/17 17:58 01/29/17 21:19 01/30/17 07:20 01/30/17 08:06 Bedside Glucose 131mg/dL (70-220) 162mg/dL (70-220) 113mg/dL (70-220) White Blood Count 5.910^3/ul (4.8-10.8) Red Blood Count 4.7210^6/ul (4.70-6.10) Hemoglobin 14.6g/dl (14.0-18.0) Hematocrit 42.9% (42.0-52.0) Mean Corpuscular Volume 90.9fl (82.0-101.0) Mean Corpuscular Hemoglobin 30.9pg (29.0-33.0) Mean Corpuscular Hemoglobin Concent 34.0g/dl (32.0-37.0) Red Cell Distribution Width 13.2% (11.5-14.5) Platelet Count 90896^3/UL (140-415) Mean Platelet Volume 9.9fl (7.4-10.4) Neutrophils % 58.8% (39.0-77.0) Lymphocytes % 25.3% (15.0-51.0) Monocytes % 8.8% (0.0-11.0) Eosinophils % 5.8% (0.0-7.0) Basophils % 1.0% (0.0-2.0) Nucleated Red Blood Cells % 0.0/100WBC (0.0-0.0) Neutrophils # 3.510^3/ul (1.6-7.5) Lymphocytes # 1.510^3/ul (0.8-2.9) Monocytes # 0.510^3/ul (0.3-0.9) Eosinophils # 0.310^3/ul (0.0-0.5) Basophils # 0.110^3/ul (0.0-0.1) Nucleated Red Blood Cells # 0.010^3/ul (0.0-0.0) Sodium Level 142mmol/L (135-144) Potassium Level 3.8mmol/L (3.5-5.1) Chloride Level 105mmol/L (97-110) Carbon Dioxide Level 27mmol/L (21-31) Anion Gap 14 (8-16) Blood Urea Nitrogen 21mg/dl (7-20) Creatinine 1.02mg/dl (0.61-1.24) Glucose Level 117mg/dl (70-220) Calcium Level 9.2mg/dl (8.4-10.2) Magnesium Level 2.0mg/dl (1.7-2.5) Triglycerides Level 206mg/dl (0-149) Cholesterol Level 129mg/dl (100-200) LDL Cholesterol, Calculated 55mg/dl HDL Cholesterol 33mg/dl (30-78) Cholesterol/HDL Ratio 3.9RATIO KRYSTAL PELAYO NP Jan 30, 2017 12:09 KRYSTAL PELAYO NP Jan 30, 2017 12:09
--- NOTE | 2017-01-30 14:38 | RADRPT ---
Vent Rate: 75 bpm RR Interval: 0 msec VT Interval: 176 msec QRS Duration: 92 msec QT Interval: 406 msec QTC Interval: 453 msec P-R-T [place]: 46 - 38 - 42 degrees Sinus rhythm with premature atrial complexes Otherwise normal ECG Electronically Signed By: Merrill Kapadia [id number]
--- NOTE | 2017-01-30 14:39 | RADRPT ---
Vent Rate: 71 bpm RR Interval: 0 msec MN Interval: 180 msec QRS Duration: 88 msec QT Interval: 412 msec QTC Interval: 447 msec P-R-T [place]: 35 - 35 - 47 degrees Normal sinus rhythm Normal ECG Electronically Signed By: Merrill Kapadia [id number]
== END 2017-01-30 13:40 | disposition home or self-care (01) | DRG 313 ==
LOC: OBSVTOIN 21:13 → TEL 21:13 → INTOOBSV 21:13 → TEL 01-30 03:02
PROVIDERS: ADMIT Internal Medicine; ATTEND Internal Medicine
DX: R07.89 Other chest pain (principal); I25.2 Old myocardial infarction; I10 Essential (primary) hypertension; I25.10 Atherosclerotic heart disease of native coronary artery without angina pectoris; E78.5 Hyperlipidemia, unspecified; E11.9 Type 2 diabetes mellitus without complications; G47.33 Obstructive sleep apnea (adult) (pediatric); E66.9 Obesity, unspecified; Z68.33 Body mass index [BMI] 33.0-33.9, adult; Z79.4 Long term (current) use of insulin; Z79.84 Long term (current) use of oral hypoglycemic drugs; Z95.5 Presence of coronary angioplasty implant and graft; Z79.02 Long term (current) use of antithrombotics/antiplatelets; Z79.82 Long term (current) use of aspirin
CPT/HCPCS: 80048; 80053; 80061; 82306; 82550; 82553; 82962; 83036; 83735; 83880; 84443; 84484; 85025; 93005; 93306; J1815

== ENCOUNTER 2017-02-06 15:25 | Inpatient (IN) | payer OTHER ==
[~2017-02-06] VITALS: Ht 182.9 cm; Wt 108.9 kg
[~2017-02-06 15:25] MED LIST changes: -AZIT250T94 PO; -EMPA1TAB3 PO; -GLIM4TAB PO; -GLUC100015 PO; -HYDR-906 PO; -IBUP-1542 PO; -LISI-313 PO; -PROM5SYR2 PO; -ROSU5TAB5 PO
[2017-02-06 16:46] VITALS: PULSE 77
[2017-02-06] MEDS ORDERED: morphine 2 MG INJ IV PRN ×2 (17:30→18:00)
[2017-02-06] MEDS ORDERED: NACL 0.9% 3 ML SYG IV SCH (17:30)
[2017-02-06] MEDS ORDERED: NITROGLYCERIN (SL) 0.4 MG TAB SL PRN (17:30)
[2017-02-06 17:59] VITALS: Ht 182.9 cm; Wt 108.9 kg
[2017-02-06] MEDS ORDERED: morphine LIQ (10 MG/5 ML) CUP PO PRN (18:00)
[2017-02-06] MEDS: INSULIN ASPART [NOVOLOG] 3 ML PEN SC SCH ×2 (18:05→21:04)
[2017-02-06] MEDS ORDERED: GLUCOSE GEL 15 GRAM TUBE PO PRN ×2 (18:30)
[2017-02-06] MEDS ORDERED: GLUCAGON 1 MG INJ IM PRN (18:30)
[2017-02-06] MEDS ORDERED: GLUCOSE GEL 15 GRAM TUBE BUCCAL PRN (18:30)
[2017-02-06] MEDS ORDERED: DEXTROSE 50% 50 ML SYRINGE IV PRN ×2 (18:30)
[2017-02-06 20:12] VITALS: BP 140/67; PULSE 88; RESP 19
[2017-02-06] MEDS: FAMOTIDINE 20 MG TAB PO SCH (20:49)
--- NOTE | 2017-02-06 21:33 | HP ---
DATE OF ADMISSION: 02/06/2017 HISTORY OF PRESENT ILLNESS: The patient is a 61-year-old male with a history of coronary artery dis ease and history of myocardial infarction. The patient is status post PTCA and stent placement to t he right coronary artery in 06/2015. The patient also with history of diabetes mellitus, dyslipidem ia, hypertension. The patient usually follows with Dr. Amaro, syrup maker cook in [place] where the [facility]. The patient developed chest pain with radiation to the bilateral jaw, and the patient also had a headache. Chest pain was 8/10, with no exacerbating or alleviating factors. The patient called 911 and was brought to [facility]. In [facility], the patient underwent a chest x-ray which was unremarkable with no acute cardiopulmonary disease. The patient' s troponin was also noted to be less than 0.01. The patient's BMP and CBC were within normal limits . The patient also underwent a 12-lead EKG that showed sinus rhythm with inferior infarct, age is u ndetermined. Reviewed medical records from [facility], and the patient was transferred to [facility] due to insurance reasons. The patient will be admitted for further joelle luation and management to telemetry floor. PAST MEDICAL HISTORY: Per HPI. PAST SURGICAL HISTORY: Per HPI, plus the patient had a hernia repair a couple of years ago. FAMILY HISTORY: Noncontributory. SOCIAL HISTORY: The patient denies any tobacco use, denies any alcohol use, denies any illicit drug use. ALLERGIES: NO KNOWN ALLERGIES. HOME MEDICATIONS: Include: 1. Aspirin. 2. Vitamin D. 3. Plavix. 4. Fish oil. 5. Levemir 30 units subcutaneous daily. 6. Metformin. 7. Lopressor. 8. Humalog. 9. Januvia. 10. [place]-3 fatty acids. REVIEW OF SYSTEMS: A 12-point review of systems negative except for what is mentioned in the HPI. PHYSICAL ASSESSMENT: GENERAL: Well-developed, obese male, currently is awake, alert. VITAL SIGNS: Temperature is 98.0, pulse is 77, blood pressure is 136/78, respiratory rate 16, oxyge n saturation is 97% on room air. HEENT: Head is atraumatic, normocephalic. Pupils equal, round, reactive to light and accommodation . Oral mucosa is pink and moist. NECK: Supple, no cervical lymphadenopathy, no thyromegaly. CHEST: Lungs clear bilaterally. There is no rhonchi, wheezes, rales noted. CARDIOVASCULAR: Normal S1, S2. No murmurs, gallops, clicks or rubs noted. ABDOMEN: Protuberant, soft, nondistended, nontender. Bowel sounds present. There is no guarding, no rebound tenderness. EXTREMITIES: No edema, clubbing, cyanosis. Pulses equal bilaterally 2+. SKIN: There is no rash, petechiae noted. NEUROLOGIC: The patient is awake, alert and oriented x4. No focal deficits noted. Motor strength 5/5 in all extremities. ASSESSMENT AND PLAN: 1. Chest pain with radiation to bilateral jaw. Will obtain cardiac enzymes q.[address] Randy stroud, who is covering for Dr. Ibrahim, is asked to see the patient in cardiology consultation. Will c ontinue aspirin and Plavix. Continue nitroglycerin p.r.n. for chest pain and morphine p.r.n. for ch est pain. Zofran p.r.n. for nausea. 2. Coronary artery disease, status post percutaneous transluminal coronary angiography and stent pl acement to right coronary artery in 06/2015. 3. Diabetes mellitus. Will continue with long-acting insulin and NovoLog per mild algorithm slidin g scale. Continue Januvia. 4. Hypertension. Continue metoprolol. 5. Dyslipidemia. 6. Will continue Lovenox for deep venous thrombosis prophylaxis and Protonix for peptic ulcer disea se prophylaxis. Further recommendations based on clinical course. Plan of care discussed with Dr. Prado. Dictated By: DARREN LOFTON ROOFER GYPSUM for JAIDEN PRADO MD SR/NTS Conf#: [id number] DID#: [id number] CC: JAIDEN PRADO MD;*EndCC*
[2017-02-07] VITALS (12 sets, daily range): BP systolic 113–152; BP diastolic 65–78; PULSE 75–91; RESP 16–19
[2017-02-07 01:16] LABS: CREATINE KINASE 78 IU/L (23-200)
[2017-02-07 01:32] LABS: CK-MB 0.89 ng/ml (0.0-2.4); TROPONIN-I < 0.012 ng/ml (0.00-0.12)
[2017-02-07] MEDS: ACCU-CHEK XX SCH (02:00)
[2017-02-07] MEDS: FAMOTIDINE 20 MG TAB PO SCH (08:10)
[2017-02-07] MEDS: ASPIRIN 81 MG TAB PO SCH (08:10)
[2017-02-07] MEDS: INSULIN ASPART [NOVOLOG] 3 ML PEN SC SCH ×4 (08:14→20:19)
[2017-02-07] MEDS: ENOXAPARIN 30 MG/0.3 ML SYG SC SCH (08:14)
--- NOTE | 2017-02-07 09:08 | RADRPT ---
PROCEDURE: XR Chest. TECHNIQUE: Single frontal radiograph. CLINICAL INDICATION: Cough. COMPARISON: 08/14/2015. FINDINGS: Bibasilar atelectasis without focal consolidation, pneumothorax, or pleural effusions. Stable appear ance of the cardiac silhouette. IMPRESSION: No acute cardiopulmonary process. RPTAT: EE .Anderson Santana MD, MD Date Time Electronically viewed and signed by .Anderson Santana MD, MD on 02/07/2017 09:14 .C/
[2017-02-07 09:34] LABS: BASOPHIL # 0.1 10^3/ul (0.0-0.1); BASOPHILS % 0.8 % (0.0-2.0); EOSINOPHILS # 0.3 10^3/ul (0.0-0.5); EOSINOPHILS % 5.7 % (0.0-7.0); HEMATOCRIT 43.7 % (42.0-52.0); HEMOGLOBIN 15.2 g/dl (14.0-18.0); LYMPHOCYTES # 1.6 10^3/ul (0.8-2.9); LYMPHOCYTES % 26.2 % (15.0-51.0); MEAN CORPUSCULAR HEMOGLOBIN 31.7 pg (29.0-33.0); MEAN CORPUSCULAR HGB CONC 34.8 g/dl (32.0-37.0); MEAN CORPUSCULAR VOLUME 91.2 fl (82.0-101.0); MONOCYTE # 0.6 10^3/ul (0.3-0.9); MONOCYTES % 9.5 % (0.0-11.0); NEUTROPHIL # 3.4 10^3/ul (1.6-7.5); NEUTROPHILS % 57.3 % (39.0-77.0); PLATELET COUNT 157 10^3/UL (140-415); RED BLOOD COUNT 4.79 10^6/ul (4.70-6.10); RED CELL DISTRIBUTION WIDTH 13.6 % (11.5-14.5); WHITE BLOOD COUNT 5.9 10^3/ul (4.8-10.8)
[2017-02-07 09:48] LABS: CREATINE KINASE 74 IU/L (23-200)
[2017-02-07 10:16] LABS: ALBUMIN 3.9 g/dl (3.3-4.9); ALBUMIN/GLOBULIN RATIO 1.21; BILIRUBIN,INDIRECT 0.5 mg/dl (0-1.1); BILIRUBIN,TOTAL 0.5 mg/dl (0.2-1.3); CALCIUM 9.4 mg/dl (8.4-10.2); CREATININE 1.1 mg/dl (0.61-1.24); POTASSIUM 4.1 mmol/L (3.5-5.1); TOTAL PROTEIN 7.1 g/dl (6.1-8.1)
[2017-02-07 10:20] LABS: CK-MB 0.98 ng/ml (0.0-2.4); TROPONIN-I < 0.012 ng/ml (0.00-0.12)
[2017-02-07 10:23] LABS: MAGNESIUM 1.9 mg/dl (1.7-2.5)
[2017-02-07 10:52] LABS: THYROID STIMULATING HORMONE 2.29 MIU/L (0.465-4.680)
[2017-02-07 13:05] LABS: CREATINE KINASE 72 IU/L (23-200)
[2017-02-07 13:19] LABS: TROPONIN-I < 0.012 ng/ml (0.00-0.12)
--- NOTE | 2017-02-07 15:27 | PN ---
Date/Time of Note Date/Time of Note DATE: 02/07/17 TIME: 15:24 Assessment/Plan VTE Prophylaxis VTE Prophylaxis Intervention: SCD's Lines/Catheters IV Catheter Type (from [facility]): Saline Lock Assessment/Plan Assessment/Plan - Chest pain with radiation to bilateral jaw. Rule out acute coronary syndrome. Cardiac enzymes are negative 3. Dr. Pitts is following incardiology consultation. Continue aspirin and Plavix. Continue nitroglycerin p.r.n. for chest pain and morphine p.r.n. for chest pain. Zofran p.r.n. for nausea. - Coronary artery disease, status post percutaneous transluminal coronary angiography and stent placement to right coronary artery in 06/2015. - Diabetes mellitus. Hemoglobin A1c 7.9. Continue Levemir and NovoLog per mild algorithm sliding scale. Continue Januvia. - Hypertension. Continue metoprolol. - Dyslipidemia. Further recommendations based on clinical course. Plan of care discussed with Dr. Carson. Exam/Review of Systems Vital Signs Vitals Vital Signs Date Time Temp Pulse Resp B/P Pulse Ox O2 Delivery O2 Flow Rate FiO2 02/07/17 12:17 86 02/07/17 11:26 98.2 16 115/70 98 Intake and Output 02/06/17 02/06/17 02/07/17 15:00 23:00 07:00 Intake Total 1100 ml Balance 1100 ml Results Result Diagram: 02/07/17 0854 02/07/17 0853 Results 24 hrs Laboratory Tests Test 02/06/17 17:10 02/06/17 20:46 02/07/17 00:25 02/07/17 02:38 Bedside Glucose 112 253 H 190 Creatine Kinase 78 Creatine Kinase Index 1.1 Creatinine Kinase MB (Mass) 0.89 Troponin I < 0.012 Test 02/07/17 08:09 02/07/17 08:53 02/07/17 08:54 02/07/17 12:11 Bedside Glucose 158 216 Sodium Level 139 Potassium Level 4.1 Chloride Level 104 Carbon Dioxide Level 24 Anion Gap 15 Blood Urea Nitrogen 24 H Creatinine 1.10 Glucose Level 156 Hemoglobin A1c 7.9 H Calcium Level 9.4 Magnesium Level 1.9 Total Bilirubin 0.5 Direct Bilirubin 0.00 Indirect Bilirubin 0.5 Aspartate Amino Transf (AST/SGOT) 45 Alanine Aminotransferase (ALT/SGPT) 63 Alkaline Phosphatase 79 Creatine Kinase 74 Creatine Kinase Index 1.3 Creatinine Kinase MB (Mass) 0.98 Troponin I < 0.012 Total Protein 7.1 Albumin 3.9 Globulin 3.20 Albumin/Globulin Ratio 1.21 Thyroid Stimulating Hormone (TSH) 2.290 White Blood Count 5.9 Red Blood Count 4.79 Hemoglobin 15.2 Hematocrit 43.7 Mean Corpuscular Volume 91.2 Mean Corpuscular Hemoglobin 31.7 Mean Corpuscular Hemoglobin Concent 34.8 Red Cell Distribution Width 13.6 Platelet Count 157 Mean Platelet Volume 10.0 Neutrophils % 57.3 Lymphocytes % 26.2 Monocytes % 9.5 Eosinophils % 5.7 Basophils % 0.8 Nucleated Red Blood Cells % 0.0 Neutrophils # 3.4 Lymphocytes # 1.6 Monocytes # 0.6 Eosinophils # 0.3 Basophils # 0.1 Nucleated Red Blood Cells # 0.0 Test 02/07/17 12:30 Creatine Kinase 72 Creatine Kinase Index 1.4 Creatinine Kinase MB (Mass) 1.00 Troponin I < 0.012 Medications Medications Current Medications Aspirin (Aspirin) 81 mg DAILY PO Last administered on 02/07/17 08:10; Admin Dose 81 MG; Start 02/07/17 at 09:00 Nitroglycerin (Nitroglycerin (Sl Tab) 0.4 Mg) 1 tab Q5M PRN SL CHEST PAIN; Start 02/06/17 at 17:30 Acetaminophen (Tylenol Tab) 650 mg Q6H PRN PO PAIN LEVEL 1-3 OR FEVER; Start 02/06/17 at 17:30 Enoxaparin Sodium (Lovenox) 30 mg DAILY SC Last administered on 02/07/17 08: 14; Admin Dose 30 MG; Start 02/07/17 at 09:00 Diagnostic Test (Pha) (Accu-Chek) 1 ea 02 XX ; Start 02/07/17 at 02:00 Morphine Sulfate (morphine) 6 mg Q4H PRN PO PAIN 7-10 Last administered on 20:59; Admin Dose 6 MG; Start 02/06/17 at 18:00 Miscellaneous Information 1 ea NOTE XX ; Start 02/06/17 at 18:30 Glucose (Glutose) 15 gm Q15M PRN PO DECREASED GLUCOSE; Start 02/06/17 at 18:30 Glucose (Glutose) 22.5 gm Q15M PRN PO DECREASED GLUCOSE; Start 02/06/17 at 18: 30 Dextrose (D50w Syringe) 25 ml Q15M PRN IV DECREASED GLUCOSE; Start 02/06/17 at 18:30 Dextrose (D50w Syringe) 50 ml Q15M PRN IV DECREASED GLUCOSE; Start 02/06/17 at 18:30 Glucagon (Glucagen) 1 mg Q15M PRN IM DECREASED GLUCOSE; Start 02/06/17 at 18: 30 Glucose (Glutose) 15 gm Q15M PRN BUCCAL DECREASED GLUCOSE; Start 02/06/17 at 18:30 Clopidogrel Bisulfate (plaVIX) 75 mg DAILY PO ; Start 02/07/17 at 15:00 Pantoprazole (Protonix Tab) 40 mg DAILY@06 PO ; Start 02/07/17 at 15:00 DARREN LOFTON Feb 07, 2017 15:27
[2017-02-07] MEDS: CLOPIDOGREL 75 MG TAB PO SCH (16:30)
[2017-02-07] MEDS: PANTOPRAZOLE (EC) 40 MG TAB PO SCH (16:30)
--- NOTE | 2017-02-07 19:27 | RADRPT ---
Vent Rate: 0 bpm RR Interval: 0 msec [place] Interval: 0 msec QRS Duration: 0 msec QT Interval: 0 msec QTC Interval: 0 msec P-R-T [place]: 0 - 0 - 0 degrees Electronically Signed By: Markus Butt [id number]
[2017-02-07] MEDS: METOPROLOL 25 MG TAB PO SCH (20:17)
--- NOTE | 2017-02-07 20:23 | CONS ---
DATE OF ADMISSION: 02/06/2017 DATE OF CONSULTATION: CARDIOLOGY CONSULTATION REFERRING PHYSICIAN: Dr. Jaiden Prado REASON FOR EVALUATION: Chest pain. HISTORY OF PRESENT ILLNESS: Mr. Daryl Bailon is ____ 61-year-old gentleman with history of coronary artery disease and myocardial infarction, with prior history of PTCA. The patient apparently had a recent stress test 4 months ago, which I reviewed with him during the last admission. The patient re-presents now with chest pain. The patient stated that it is radiating to his jaw. The troponins are negative. When I asked the patient what he thinks about his condition, he is very concerned ab out his cardiac disease, and I think it would be reasonable to risk stratify the patient now with a stress test here. Patient is agreeable to proceed. We will schedule stress test for tomorrow. PAST MEDICAL HISTORY: 1. Hypertension. 2. Dyslipidemia. 3. History of PTCA and stenting of the RCA in June of 2015. 4. History of anxiety. 5. History of diabetes. ALLERGIES: NO KNOWN DRUG ALLERGIES. SOCIAL HISTORY: The patient doesn't smoke, doesn't drink, doesn't use any drugs now. FAMILY HISTORY: Negative for sudden cardiac or premature coronary artery disease. MEDICATIONS: Here: 1. Aspirin 325 mg once a day. 2. ____ 25 mg b.i.d. 3. Plavix 75 mg p.o. once a day. 4. Glucose on a sliding scale. 5. IV flush. REVIEW OF SYSTEMS: CONSTITUTIONAL: No fevers, no chills. Chest pain as described. HEENT: No changes in vision or hearing. CARDIAC: No chest pain reported now. RESPIRATORY: Short of breath is chronic. GASTROINTESTINAL: No nausea, vomiting, diarrhea, constipation. GENITOURINARY: No dysuria or hematuria. NEUROLOGIC: No focal deficits. HEMATOLOGIC: No easy bruising. PSYCHIATRIC: History of psychiatric illness. No history of ____. PHYSICAL EXAMINATION: VITAL SIGNS: Temperature is 98.2, heart rate is 86, blood pressure 115/70. GENERAL: He is a well-nourished gentleman in no acute distress, alert and oriented x3, aware of his condition. HEENT: Head is normocephalic, atraumatic. Eyes anicteric. NECK: Supple. JVD 6-7 cm. There is no lymphadenopathy or thyromegaly. HEART: Regular with soft holosystolic murmur at the apex. PMI is nondisplaced. I do not hear an S 3. LUNGS: Coarse at bases. ABDOMEN: Distended. Bowel sounds are present. There is no hepatosplenomegaly. GENITOURINARY: Grossly intact. LABORATORY DATA: White blood cell count of 5.9, hemoglobin is 15.2. His troponin is negative at 0. 0 as well. Creatinine is 1.1. ECG does not show any ischemia. ASSESSMENT AND PLAN: 1. Chest pain. The patient reported episode of chest pain, has history of drug-eluting stenting in the past. We will risk stratify with a stress test, patient agrees. 2. Hypertension. Blood pressure well optimized now. Continue to follow. 3. Abnormal EKG, nonspecific ST-T changes noted. There are no signs of acute ischemia here. 4. Diabetes. Continue diabetic optimization and care. Dictated By: TAYA RYDER MD ML/NTS Conf#: [id number] DID#: [id number] CC: JAIDEN PRADO MD;*EndCC*
[2017-02-07] MEDS ORDERED: INSULIN DETEMIR [LEVEMIR] 3ML CART SC SCH (21:00)
[2017-02-08] VITALS (11 sets, daily range): BP systolic 116–143; BP diastolic 59–68; PULSE 70–90; RESP 18
[2017-02-08] MEDS: ACCU-CHEK XX SCH (02:20)
[2017-02-08] MEDS: PANTOPRAZOLE (EC) 40 MG TAB PO SCH (05:48)
[2017-02-08] MEDS: INSULIN ASPART [NOVOLOG] 3 ML PEN SC SCH ×5 (08:00→20:13)
[2017-02-08] MEDS: ASPIRIN 81 MG TAB PO SCH (08:24)
[2017-02-08] MEDS: CLOPIDOGREL 75 MG TAB PO SCH (08:24)
[2017-02-08] MEDS: CHOLECALCIFEROL 2,000 UNIT CAP PO SCH (08:24)
[2017-02-08] MEDS: METOPROLOL 25 MG TAB PO SCH ×2 (08:24→20:07)
[2017-02-08] MEDS: ENOXAPARIN 30 MG/0.3 ML SYG SC SCH (08:25)
[2017-02-08] MEDS ORDERED: ASPIRIN (EC) 325 MG TAB PO SCH (09:00)
[2017-02-08] MEDS ORDERED: INSULIN DETEMIR [LEVEMIR] 3ML CART SC SCH (09:00)
[2017-02-08 09:05] LABS: BASOPHIL # 0.1 10^3/ul (0.0-0.1); EOSINOPHILS # 0.3 10^3/ul (0.0-0.5); EOSINOPHILS % 5.9 % (0.0-7.0); HEMATOCRIT 43.8 % (42.0-52.0); LYMPHOCYTES # 1.2 10^3/ul (0.8-2.9); LYMPHOCYTES % 22.1 % (15.0-51.0); MEAN CORPUSCULAR HEMOGLOBIN 31.3 pg (29.0-33.0); MEAN CORPUSCULAR HGB CONC 34.2 g/dl (32.0-37.0); MEAN CORPUSCULAR VOLUME 91.4 fl (82.0-101.0); MEAN PLATELET VOLUME 9.9 fl (7.4-10.4); MONOCYTE # 0.6 10^3/ul (0.3-0.9); MONOCYTES % 12.2 % (0.0-11.0); NEUTROPHIL # 3.1 10^3/ul (1.6-7.5); NEUTROPHILS % 58.4 % (39.0-77.0); PLATELET COUNT 169 10^3/UL (140-415); RED BLOOD COUNT 4.79 10^6/ul (4.70-6.10); RED CELL DISTRIBUTION WIDTH 13.2 % (11.5-14.5); WHITE BLOOD COUNT 5.3 10^3/ul (4.8-10.8)
[2017-02-08 09:27] LABS: CALCIUM 9.1 mg/dl (8.4-10.2); CREATININE 1.05 mg/dl (0.61-1.24)
[2017-02-08] MEDS ORDERED: REGADENOSON 0.4 MG/5 ML SYG ONE (13:37)
--- NOTE | 2017-02-08 16:55 | ECORPT ---
DATE OF SERVICE: 02/08/2017 LEXISCAN CARDIAC STRESS TEST REFERRING PHYSICIAN: Dr. Carson. REASON FOR EVALUATION: Chest pain. DESCRIPTION OF THE PROCEDURE: The patient was brought in the heart station in satisfactory conditio n, blood pressure 127/71. He tolerated the injection well. There was no chest pain. The imaging p ortion is dictated separately. Dictated By: VIOLETA NIELSEN MD SE/NTS Conf#: [id number] DID#: [id number] CC: JAIDEN CARSON MD;*EndCC*
--- NOTE | 2017-02-08 16:56 | RADRPT ---
PROCEDURE: Lexiscan myocardial perfusion study CLINICAL INDICATION: 61 -year-old patient complaining of chest pain. TECHNIQUE: Lexiscan 0.4 mg intravenously separate acquisition gated myocardial perfusion SPECT usi ng Tc 99m Myoview 31.3 mCi intravenously at stress and Tc-99m Myoview, 11.0 mCi intravenously at res t was performed using the rest/stress sequence. Poststress Myoview SPECT images were obtained in th e supine position. COMPARISON: No prior studies. FINDINGS: Perfusion images reveal a small size mild in degree nonreversible perfusion abnormality in the infer ior wall. Lexiscan post stress gated SPECT images demonstrate mild hypokinesis of the left ventricle. IMPRESSION: 1. The type and distribution of the scintigraphic abnormalities are most consistent with a small siz e nonreversible perfusion defect in the inferior wall. 2. Mild hypokinesis of the left ventricle. 3. The left ventricle ejection fraction at stress is 48%. A call report was made to Dr. Pitts at 03:24 p.m. on February 08, 2017. RPTAT: HH .Eugenia Salguero MD, MD Date Time Electronically viewed and signed by .Eugenia Salguero MD, on 02/08/2017 15:24 .L/
--- NOTE | 2017-02-08 17:48 | PN ---
Date/Time of Note Date/Time of Note DATE: 02/08/17 TIME: 17:46 Assessment/Plan VTE Prophylaxis VTE Prophylaxis Intervention: SCD's Lines/Catheters IV C[facility]ter Type (from [facility]): Saline Lock Urinary Cath still in place: No Assessment/Plan Chief Complaint/Hosp Course Patient is status post stress test today, stated that his chest and jaw pain is 2 out of 10. Complains of rectal bleeding, hold Lovenox, hemoglobin is within normal limits. Will obtain stool for OB. Dr. Mathis is asked to see patient in gastroenterology consultation. Patient stating that he has been having rectal bleeding on and off for last couple of years however never had colonoscopy. Assessment/Plan - Chest pain with radiation to bilateral jaw. Rule out acute coronary syndrome. Cardiac enzymes are negative 3. Dr. Pitts is following incardiology consultation. Continue aspirin and Plavix. Continue nitroglycerin p.r.n. for chest pain and morphine p.r.n. for chest pain. Zofran p.r.n. for nausea. - Coronary artery disease, status post percutaneous transluminal coronary angiography and stent placement to right coronary artery in 06/2015. - Diabetes mellitus. Hemoglobin A1c 7.9. Continue Levemir and pre-meal NovoLog and NovoLog per mild algorithm sliding scale. Continue Januvia. - Hypertension. Continue metoprolol. - Dyslipidemia. Further recommendations based on clinical course. Plan of care discussed with Dr. Carson. Problems: Exam/Review of Systems Vital Signs Vitals Vital Signs Date Time Temp Pulse Resp B/P Pulse Ox O2 Delivery O2 Flow Rate FiO2 02/08/17 16:55 97.7 77 18 143/68 97 02/07/17 23:44 Room Air Intake and Output 02/07/17 02/07/17 02/08/17 15:00 23:00 07:00 Intake Total 1320 ml 450 ml Balance 1320 ml 450 ml Exam Constitutional: alert, oriented Neck: supple Respiratory: normal air movement Cardiovascular: nl pulses, regular rate and rhythm Gastrointestinal: non-tender, soft Musculoskeletal: nl extremities to inspection Extremities: normal pulses Results Result Diagram: 02/08/17 0808 02/08/17 0808 Results 24 hrs Laboratory Tests Test 02/07/17 20:13 02/08/17 05:49 02/08/17 08:08 02/08/17 08:20 Bedside Glucose 227 H 232 H 161 White Blood Count 5.3 Red Blood Count 4.79 Hemoglobin 15.0 Hematocrit 43.8 Mean Corpuscular Volume 91.4 Mean Corpuscular Hemoglobin 31.3 Mean Corpuscular Hemoglobin Concent 34.2 Red Cell Distribution Width 13.2 Platelet Count 169 Mean Platelet Volume 9.9 Neutrophils % 58.4 Lymphocytes % 22.1 Monocytes % 12.2 H Eosinophils % 5.9 Basophils % 1.0 Nucleated Red Blood Cells % 0.0 Neutrophils # 3.1 Lymphocytes # 1.2 Monocytes # 0.6 Eosinophils # 0.3 Basophils # 0.1 Nucleated Red Blood Cells # 0.0 Sodium Level 140 Potassium Level 4.0 Chloride Level 107 Carbon Dioxide Level 23 Anion Gap 14 Blood Urea Nitrogen 26 H Creatinine 1.05 Glucose Level 190 Calcium Level 9.1 Test 02/08/17 12:29 02/08/17 12:40 02/08/17 15:29 02/08/17 17:23 Bedside Glucose 311 H 184 256 H Stool Occult Blood POSITIVE Medications Medications Current Medications Aspirin (Aspirin) 81 mg DAILY PO Last administered on 02/08/17 08:24; Admin Dose 81 MG; Start 02/07/17 at 09:00 Nitroglycerin (Nitroglycerin (Sl Tab) 0.4 Mg) 1 tab Q5M PRN SL CHEST PAIN; Start 02/06/17 at 17:30 Acetaminophen (Tylenol Tab) 650 mg Q6H PRN PO PAIN LEVEL 1-3 OR FEVER; Start 02/06/17 at 17:30 Diagnostic Test (Pha) (Accu-Chek) 1 ea 02 XX Last administered on 02/08/17 02 :20; Admin Dose 1 EA; Start 02/07/17 at 02:00 Morphine Sulfate (morphine) 6 mg Q4H PRN PO PAIN 7-10 Last administered on 20:59; Admin Dose 6 MG; Start 02/06/17 at 18:00 Miscellaneous Information 1 ea NOTE XX ; Start 02/06/17 at 18:30 Glucose (Glutose) 15 gm Q15M PRN PO DECREASED GLUCOSE; Start 02/06/17 at 18:30 Glucose (Glutose) 22.5 gm Q15M PRN PO DECREASED GLUCOSE; Start 02/06/17 at 18: 30 Dextrose (D50w Syringe) 25 ml Q15M PRN IV DECREASED GLUCOSE; Start 02/06/17 at 18:30 Dextrose (D50w Syringe) 50 ml Q15M PRN IV DECREASED GLUCOSE; Start 02/06/17 at 18:30 Glucagon (Glucagen) 1 mg Q15M PRN IM DECREASED GLUCOSE; Start 02/06/17 at 18: 30 Glucose (Glutose) 15 gm Q15M PRN BUCCAL DECREASED GLUCOSE; Start 02/06/17 at 18:30 Clopidogrel Bisulfate (plaVIX) 75 mg DAILY PO Last administered on 02/08/17 08:24; Admin Dose 75 MG; Start 02/07/17 at 15:00 Pantoprazole (Protonix Tab) 40 mg DAILY@06 PO Last administered on 02/08/17 05:48; Admin Dose 40 MG; Start 02/07/17 at 15:00 Cholecalciferol (Vitamin D) 2,000 unit DAILY PO Last administered on 08:24; Admin Dose 2,000 UNIT; Start 02/08/17 at 09:00 Metoprolol Tartrate (Lopressor) 25 mg BID PO Last administered on 02/08/17 08 :24; Admin Dose 25 MG; Start 02/07/17 at 21:00 Insulin Detemir (Levemir) 30 unit QHS SC Last administered on 02/07/17 20:18 ; Admin Dose 30 UNIT; Start 02/07/17 at 21:00 Miscellaneous Information (* Miscellaneous Pharmacy Order) Discontinue current oral sulfonylur... ONCE ONCE XX ; Start 02/08/17 at 18:00; Stop 02/08/17 at 18:01; Status UNV Diagnostic Test (Pha) (Accu-Chek) 1 ea XX ; Start 02/09/17 at 02:00; Status UNV Insulin Detemir (Levemir) 36 unit DAILY@20 SC ; Start 02/08/17 at 20:00; Status UNV Miscellaneous Information (* Miscellaneous Pharmacy Order) HYPOGLYCEMIA PROTOCOL w... ONCE ONCE XX ; Start 02/08/17 at 18:00; Stop 02/08/17 at 18:01 ; Status UNV Miscellaneous Information (* Miscellaneous Pharmacy Order) Discontinue all previ... ONCE ONCE XX ; Start 02/08/17 at 18:00; Stop 02/08/17 at 18:01; Status UNV DARREN LOFTON Feb 08, 2017 17:48
[2017-02-08] MEDS: INSULIN DETEMIR [LEVEMIR] 3ML CART SC SCH (20:10)
[2017-02-09] VITALS (13 sets, daily range): BP systolic 119–161; BP diastolic 59–76; PULSE 69–84; RESP 16–22
[2017-02-09] MEDS: ACCU-CHEK XX SCH (02:00)
[2017-02-09] MEDS ORDERED: ACCU-CHEK XX SCH (02:00)
[2017-02-09] MEDS: INSULIN ASPART [NOVOLOG] 3 ML PEN SC SCH ×7 (08:15→21:00)
[2017-02-09] MEDS: METOPROLOL 25 MG TAB PO SCH ×2 (08:16→21:17)
[2017-02-09] MEDS: ASPIRIN 81 MG TAB PO SCH (08:16)
[2017-02-09] MEDS: CHOLECALCIFEROL 2,000 UNIT CAP PO SCH (08:17)
[2017-02-09] MEDS: PANTOPRAZOLE (EC) 40 MG TAB PO SCH (08:17)
[2017-02-09] MEDS: CLOPIDOGREL 75 MG TAB PO SCH (08:17)
[2017-02-09] MEDS: LINAGLIPTIN 5 MG TABLET PO SCH (08:17)
[2017-02-09 08:53] LABS: BASOPHILS % 0.8 % (0.0-2.0); EOSINOPHILS # 0.4 10^3/ul (0.0-0.5); EOSINOPHILS % 7.1 % (0.0-7.0); HEMATOCRIT 43.4 % (42.0-52.0); HEMOGLOBIN 14.8 g/dl (14.0-18.0); LYMPHOCYTES # 1.3 10^3/ul (0.8-2.9); LYMPHOCYTES % 26.8 % (15.0-51.0); MEAN CORPUSCULAR HEMOGLOBIN 31.1 pg (29.0-33.0); MEAN CORPUSCULAR HGB CONC 34.1 g/dl (32.0-37.0); MEAN CORPUSCULAR VOLUME 91.2 fl (82.0-101.0); MEAN PLATELET VOLUME 9.8 fl (7.4-10.4); MONOCYTE # 0.6 10^3/ul (0.3-0.9); MONOCYTES % 11.6 % (0.0-11.0); NEUTROPHIL # 2.6 10^3/ul (1.6-7.5); NEUTROPHILS % 53.5 % (39.0-77.0); PLATELET COUNT 170 10^3/UL (140-415); RED BLOOD COUNT 4.76 10^6/ul (4.70-6.10); RED CELL DISTRIBUTION WIDTH 13.3 % (11.5-14.5); WHITE BLOOD COUNT 4.9 10^3/ul (4.8-10.8)
[2017-02-09 09:29] LABS: CREATININE 1.12 mg/dl (0.61-1.24); POTASSIUM 3.8 mmol/L (3.5-5.1)
--- NOTE | 2017-02-09 12:53 | PN ---
Date/Time of Note Date/Time of Note DATE: 02/09/17 TIME: 12:52 Assessment/Plan VTE Prophylaxis VTE Prophylaxis Intervention: SCD's Lines/Catheters IV [facility] Type [facility]from [facility] Saline Lock Urinary Cath still in place: No Assessment/Plan Chief Complaint/Hosp Course Patient denies any chest pain complains of mild sharp pain denies shortness of breath. Patient is status post Lexiscan yesterday. Pending evaluation by gastroenterology. Assessment/Plan - Chest pain with radiation to bilateral jaw. Rule out acute coronary syndrome. Cardiac enzymes are negative 3. Dr. Pitts is following incardiology consultation. Continue aspirin and Plavix. Continue nitroglycerin p.r.n. for chest pain and morphine p.r.n. for chest pain. Zofran p.r.n. for nausea. - Rectal bleed, Dr. Mathis is asked to see patient in gastroenterology consultation. - Coronary artery disease, status post percutaneous transluminal coronary angiography and stent placement to right coronary artery in 06/2015. - Diabetes mellitus. Hemoglobin A1c 7.9. Continue Levemir and pre-meal NovoLog and NovoLog per mild algorithm sliding scale. Continue Januvia. - Hypertension. Continue metoprolol. - Dyslipidemia. Further recommendations based on clinical course. Plan of care discussed with Dr. Carson. Problems: Exam/Review of Systems Vital Signs Vitals Vital Signs Date Time Temp Pulse Resp B/P Pulse Ox O2 Delivery O2 Flow Rate FiO2 02/09/17 12:12 71 02/09/17 12:01 97.8 19 125/59 98 02/09/17 00:37 Room Air Intake and Output 02/08/17 02/08/17 02/09/17 15:00 23:00 07:00 Intake Total 1250 ml 240 ml Balance 1250 ml 240 ml Exam Constitutional: alert, oriented Neck: supple Respiratory: normal air movement Cardiovascular: nl pulses, regular rate and rhythm Gastrointestinal: non-tender, soft Musculoskeletal: nl extremities to inspection Extremities: normal pulses Results Result Diagram: 02/09/17 0814 02/09/17 0814 Results 24 hrs Laboratory Tests Test 02/08/17 15:29 02/08/17 17:23 02/08/17 20:00 02/09/17 08:12 Bedside Glucose 184 256 H 162 182 Test 02/09/17 08:14 02/09/17 12:13 White Blood Count 4.9 Red Blood Count 4.76 Hemoglobin 14.8 Hematocrit 43.4 Mean Corpuscular Volume 91.2 Mean Corpuscular Hemoglobin 31.1 Mean Corpuscular Hemoglobin Concent 34.1 Red Cell Distribution Width 13.3 Platelet Count 170 Mean Platelet Volume 9.8 Neutrophils % 53.5 Lymphocytes % 26.8 Monocytes % 11.6 H Eosinophils % 7.1 H Basophils % 0.8 Nucleated Red Blood Cells % 0.0 Neutrophils # 2.6 Lymphocytes # 1.3 Monocytes # 0.6 Eosinophils # 0.4 Basophils # 0.0 Nucleated Red Blood Cells # 0.0 Sodium Level 141 Potassium Level 3.8 Chloride Level 104 Carbon Dioxide Level 27 Anion Gap 14 Blood Urea Nitrogen 26 H Creatinine 1.12 Glucose Level 190 Calcium Level 9.0 Bedside Glucose 303 H Medications Medications Current Medications Aspirin (Aspirin) 81 mg DAILY PO Last administered on 02/09/17 08:16; Admin Dose 81 MG; Start 02/07/17 at 09:00 Nitroglycerin (Nitroglycerin (Sl Tab) 0.4 Mg) 1 tab Q5M PRN SL CHEST PAIN; Start 02/06/17 at 17:30 Acetaminophen (Tylenol Tab) 650 mg Q6H PRN PO PAIN LEVEL 1-3 OR FEVER; Start 02/06/17 at 17:30 Diagnostic Test (Pha) (Accu-Chek) 1 ea 02 XX Last administered on 02/08/17 02 :20; Admin Dose 1 EA; Start 02/07/17 at 02:00 Morphine Sulfate (morphine) 6 mg Q4H PRN PO PAIN 7-10 Last administered on 20:59; Admin Dose 6 MG; Start 02/06/17 at 18:00 Miscellaneous Information 1 ea NOTE XX ; Start 02/06/17 at 18:30 Glucose (Glutose) 15 gm Q15M PRN PO DECREASED GLUCOSE; Start 02/06/17 at 18:30 Glucose (Glutose) 22.5 gm Q15M PRN PO DECREASED GLUCOSE; Start 02/06/17 at 18: 30 Dextrose (D50w Syringe) 25 ml Q15M PRN IV DECREASED GLUCOSE; Start 02/06/17 at 18:30 Dextrose (D50w Syringe) 50 ml Q15M PRN IV DECREASED GLUCOSE; Start 02/06/17 at 18:30 Glucagon (Glucagen) 1 mg Q15M PRN IM DECREASED GLUCOSE; Start 02/06/17 at 18: 30 Glucose (Glutose) 15 gm Q15M PRN BUCCAL DECREASED GLUCOSE; Start 02/06/17 at 18:30 Clopidogrel Bisulfate (plaVIX) 75 mg DAILY PO Last administered on 02/09/17 08:17; Admin Dose 75 MG; Start 02/07/17 at 15:00 Pantoprazole (Protonix Tab) 40 mg DAILY@06 PO Last administered on 02/09/17 08:17; Admin Dose 40 MG; Start 02/07/17 at 15:00 Cholecalciferol (Vitamin D) 2,000 unit DAILY PO Last administered on 08:17; Admin Dose 2,000 UNIT; Start 02/08/17 at 09:00 Metoprolol Tartrate (Lopressor) 25 mg BID PO Last administered on 02/09/17 08 :16; Admin Dose 25 MG; Start 02/07/17 at 21:00 Insulin Detemir (Levemir) 36 unit DAILY@20 SC Last administered on 02/08/17 20:10; Admin Dose 36 UNIT; Start 02/08/17 at 20:00 Linagliptin (Tradjenta) 5 mg DAILY PO Last administered on 02/09/17 08:17; Admin Dose 5 MG; Start 02/09/17 at 09:00 DARREN LOFTON Feb 09, 2017 12:53
--- NOTE | 2017-02-09 16:40 | CONS ---
Date/Time of Note Date/Time of Note DATE: 02/09/17 TIME: 16:31 Assessment/Plan Assessment/Plan Chief Complaint/Hosp Course IMp: 1. chest pain-negative trop/Lexiscan negative for ischemia 2.HTN 3.H/O MA 4. Cardiomyopathy by lexsiscan with EF 48% 5. BRBPR 6. DM 7. H/O PTCA/stent 06/2015 to RCA with MARILOU Recc: -Tele -serial ecg -Continue asa/plavix -Continue BB -start statin low dose and low dose oral anitrates -Pnding GI eval. -Ok for d/c on current medications from cardiac standpoint with close outpatient f/u. LHC for recurrent ongoing sx on medical therapy Problems: Consultation Date/Type/Reason Admit Date/Time Feb 08, 2017 at 10:37 Initial Consult Date 02/08/17 Type of Consultation: cardiology Reason for Consultation chest pain Referring Provider: JAIDEN PRADO MD Exam/Review of Systems Vital Signs Vitals Vital Signs Date Time Temp Pulse Resp B/P Pulse Ox O2 Delivery O2 Flow Rate FiO2 02/09/17 16:08 76 02/09/17 12:01 97.8 19 125/59 98 02/09/17 00:37 Room Air Intake and Output 02/08/17 02/08/17 02/09/17 15:00 23:00 07:00 Intake Total 1250 ml 240 ml Balance 1250 ml 240 ml Exam Review of Systems: CONSTITUTIONAL: No fevers, chills. PULMONARY: No sob CARDIOVASCULAR: No chest pain/palpitations GASTROINTESTINAL: No nausea/vomiting. GENITOURINARY: No hematuria/dysuria. MUSCULOSKELETAL: No myagias/arthalgias. PSYCHIATRIC: The patient denies depression. NEUROLOGIC: No weakness Constitutional: alert Psych: no complaints Head: normocephalic ENMT: mucosa pink and moist Respiratory: clear to auscultation Cardiovascular: regular rate and rhythm Gastrointestinal: non-tender, soft Musculoskeletal: muscle tone (normal) Extremities: edema (none) Neurological: other (No focal deficits) Results Result Diagram: 02/09/1714 02/09/1714 Results 24 hrs Laboratory Tests Test 02/08/17 17:23 02/08/17 20:00 02/09/17 08:12 02/09/17 08:14 Bedside Glucose 256 H 162 182 White Blood Count 4.9 Red Blood Count 4.76 Hemoglobin 14.8 Hematocrit 43.4 Mean Corpuscular Volume 91.2 Mean Corpuscular Hemoglobin 31.1 Mean Corpuscular Hemoglobin Concent 34.1 Red Cell Distribution Width 13.3 Platelet Count 170 Mean Platelet Volume 9.8 Neutrophils % 53.5 Lymphocytes % 26.8 Monocytes % 11.6 H Eosinophils % 7.1 H Basophils % 0.8 Nucleated Red Blood Cells % 0.0 Neutrophils # 2.6 Lymphocytes # 1.3 Monocytes # 0.6 Eosinophils # 0.4 Basophils # 0.0 Nucleated Red Blood Cells # 0.0 Sodium Level 141 Potassium Level 3.8 Chloride Level 104 Carbon Dioxide Level 27 Anion Gap 14 Blood Urea Nitrogen 26 H Creatinine 1.12 Glucose Level 190 Calcium Level 9.0 Test 02/09/17 12:13 Bedside Glucose 303 H Medications Medications Current Medications Aspirin (Aspirin) 81 mg DAILY PO Last administered on 02/09/17 08:16; Admin Dose 81 MG; Start 02/07/17 at 09:00 Nitroglycerin (Nitroglycerin (Sl Tab) 0.4 Mg) 1 tab Q5M PRN SL CHEST PAIN; Start 02/06/17 at 17:30 Acetaminophen (Tylenol Tab) 650 mg Q6H PRN PO PAIN LEVEL 1-3 OR FEVER; Start 02/06/17 at 17:30 Diagnostic Test (Pha) (Accu-Chek) 1 ea 02 XX Last administered on 02/08/17 02 :20; Admin Dose 1 EA; Start 02/07/17 at 02:00 Morphine Sulfate (morphine) 6 mg Q4H PRN PO PAIN 7-10 Last administered on 20:59; Admin Dose 6 MG; Start 02/06/17 at 18:00 Miscellaneous Information 1 ea NOTE XX ; Start 02/06/17 at 18:30 Glucose (Glutose) 15 gm Q15M PRN PO DECREASED GLUCOSE; Start 02/06/17 at 18:30 Glucose (Glutose) 22.5 gm Q15M PRN PO DECREASED GLUCOSE; Start 02/06/17 at 18: 30 Dextrose (D50w Syringe) 25 ml Q15M PRN IV DECREASED GLUCOSE; Start 02/06/17 at 18:30 Dextrose (D50w Syringe) 50 ml Q15M PRN IV DECREASED GLUCOSE; Start 02/06/17 at 18:30 Glucagon (Glucagen) 1 mg Q15M PRN IM DECREASED GLUCOSE; Start 02/06/17 at 18: 30 Glucose (Glutose) 15 gm Q15M PRN BUCCAL DECREASED GLUCOSE; Start 02/06/17 at 18:30 Clopidogrel Bisulfate (plaVIX) 75 mg DAILY PO Last administered on 02/09/17 08:17; Admin Dose 75 MG; Start 02/07/17 at 15:00 Pantoprazole (Protonix Tab) 40 mg DAILY@06 PO Last administered on 02/09/17 08:17; Admin Dose 40 MG; Start 02/07/17 at 15:00 Cholecalciferol (Vitamin D) 2,000 unit DAILY PO Last administered on 08:17; Admin Dose 2,000 UNIT; Start 02/08/17 at 09:00 Metoprolol Tartrate (Lopressor) 25 mg BID PO Last administered on 02/09/17 08 :16; Admin Dose 25 MG; Start 02/07/17 at 21:00 Insulin Detemir (Levemir) 36 unit DAILY@20 SC Last administered on 02/08/17 20:10; Admin Dose 36 UNIT; Start 02/08/17 at 20:00 Linagliptin (Tradjenta) 5 mg DAILY PO Last administered on 02/09/17 08:17; Admin Dose 5 MG; Start 02/09/17 at 09:00 LEXIE DECKER Feb 09, 2017 16:40
[2017-02-09] MEDS: ISOSORBIDE MONONITRATE(SR)30 MG TAB PO SCH (17:17)
[2017-02-09] MEDS ORDERED: PEG/ELECTROLYTES 4L BTL PO ONE (18:00)
[2017-02-09 19:43] LABS: INR 1.01; PROTIME 13.4 Sec (11.9-14.9)
[2017-02-09 19:44] LABS: PARTIAL THROMBOPLASTIN TIME 31.9 Sec (25.0-35.0)
[2017-02-09] MEDS: ATORVASTATIN 20 MG TAB PO SCH (21:17)
[2017-02-09] MEDS: INSULIN DETEMIR [LEVEMIR] 3ML CART SC SCH (21:18)
[2017-02-09] MEDS: ACETAMINOPHEN 325 MG TAB PO PRN (23:36)
[2017-02-10] VITALS (11 sets, daily range): BP systolic 101–135; BP diastolic 55–65; PULSE 68–78; RESP 15–18
[2017-02-10] MEDS: ACCU-CHEK XX SCH (02:00)
[2017-02-10] MEDS: PANTOPRAZOLE (EC) 40 MG TAB PO SCH (06:00)
[2017-02-10 07:42] LABS: BASOPHIL # 0.1 10^3/ul (0.0-0.1); EOSINOPHILS # 0.3 10^3/ul (0.0-0.5); EOSINOPHILS % 5.5 % (0.0-7.0); HEMATOCRIT 40.4 % (42.0-52.0); HEMOGLOBIN 13.8 g/dl (14.0-18.0); LYMPHOCYTES # 1.6 10^3/ul (0.8-2.9); LYMPHOCYTES % 25.2 % (15.0-51.0); MEAN CORPUSCULAR HEMOGLOBIN 31.1 pg (29.0-33.0); MEAN CORPUSCULAR HGB CONC 34.2 g/dl (32.0-37.0); MONOCYTE # 0.7 10^3/ul (0.3-0.9); MONOCYTES % 10.7 % (0.0-11.0); NEUTROPHIL # 3.6 10^3/ul (1.6-7.5); NEUTROPHILS % 57.3 % (39.0-77.0); PLATELET COUNT 165 10^3/UL (140-415); RED BLOOD COUNT 4.44 10^6/ul (4.70-6.10); RED CELL DISTRIBUTION WIDTH 13.3 % (11.5-14.5); WHITE BLOOD COUNT 6.2 10^3/ul (4.8-10.8)
[2017-02-10 07:59] LABS: CALCIUM 8.6 mg/dl (8.4-10.2); CREATININE 0.97 mg/dl (0.61-1.24); POTASSIUM 3.7 mmol/L (3.5-5.1)
[2017-02-10] MEDS: INSULIN ASPART [NOVOLOG] 3 ML PEN SC SCH ×7 (08:00→21:00)
[2017-02-10] MEDS ORDERED: POTASSIUM CHLORIDE 30 MEQ in SOD CHLORIDE 0.9% 150 ML IVPB ONE (09:00)
[2017-02-10] MEDS: ASPIRIN 81 MG TAB PO SCH (10:28)
[2017-02-10] MEDS: CLOPIDOGREL 75 MG TAB PO SCH (10:28)
[2017-02-10] MEDS: CHOLECALCIFEROL 2,000 UNIT CAP PO SCH (10:28)
[2017-02-10] MEDS: ISOSORBIDE MONONITRATE(SR)30 MG TAB PO SCH (10:30)
[2017-02-10] MEDS: METOPROLOL 25 MG TAB PO SCH ×2 (10:30→21:00)
[2017-02-10] MEDS: LINAGLIPTIN 5 MG TABLET PO SCH (10:30)
--- NOTE | 2017-02-10 11:54 | CONS ---
Date/Time of Note Date/Time of Note DATE: 02/10/17 TIME: 11:52 Assessment/Plan Assessment/Plan Additional Assessment/Plan 1. Chest pain. The patient reported episode of chest pain, has history of drug -eluting stenting in the past. We will risk stratify with a stress test, patient agrees.STRESS TEST NEGATIVE. 2. Hypertension. Blood pressure well optimized now. Continue to follow. BETTER NOW. 3. Abnormal EKG, nonspecific ST-T changes noted. There are no signs of acute ischemia here.Will await test results. 4. Diabetes. Continue diabetic optimization and care. 5. GI eval - prep now, OK for colonoscopy. Consultation Date/Type/Reason Admit Date/Time Feb 08, 2017 at 10:37 Initial Consult Date Type of Consultation: cardiology Referring Provider: JAIDEN PRADO MD 24 HR Interval Summary Free Text/Dictation NO acute events - BP stable - negative stress test. ROS: No fever, no chills, no nausea, no vomiting, no diarrhea/constipation No recent weight changes No chest pain, no PND, no orthopnea No dizziness, blurred vision No thirst, no heat or cold intolerance Exam/Review of Systems Vital Signs Vitals Vital Signs Date Time Temp Pulse Resp B/P Pulse Ox O2 Delivery O2 Flow Rate FiO2 02/10/17 11:39 98.0 73 17 114/65 99 02/10/17 04:00 Room Air Intake and Output 02/09/17 02/09/17 02/10/17 15:00 23:00 07:00 Intake Total 1000 ml 2200 ml Balance 1000 ml 2200 ml Exam General: WN/WD/NAD, AOx 3 HEENT: Unicetric/atraumatic/EOMI (follows commands) NECK: JVD elevated, no thyromegaly Lymph: no lymphadenopathy HEART: regular with no S3, II/ systolic murmur at apex LUNGS: Coarse sounds ABD: soft, NT, ND, +BS : Intact Neuro: non focal SKIN: chronic changes EXT: trace edema Results Result Diagram: 02/10/17 0640 02/10/17 0640 Results 24 hrs Laboratory Tests Test 02/09/17 12:13 02/09/17 17:16 02/09/17 19:16 02/09/17 21:16 Bedside Glucose 303 H 218 167 Platelet Count 170 Prothrombin Time 13.4 Prothrombin Time Ratio 1.0 INR International Normalized Ratio 1.01 Activated Partial Thromboplast Time 31.9 Thrombin Time 16.0 Test 02/10/17 06:40 02/10/17 10:26 White Blood Count 6.2 # Red Blood Count 4.44 L Hemoglobin 13.8 L Hematocrit 40.4 L Mean Corpuscular Volume 91.0 Mean Corpuscular Hemoglobin 31.1 Mean Corpuscular Hemoglobin Concent 34.2 Red Cell Distribution Width 13.3 Platelet Count 165 Mean Platelet Volume 10.0 Neutrophils % 57.3 Lymphocytes % 25.2 Monocytes % 10.7 Eosinophils % 5.5 Basophils % 1.0 Nucleated Red Blood Cells % 0.0 Neutrophils # 3.6 Lymphocytes # 1.6 Monocytes # 0.7 Eosinophils # 0.3 Basophils # 0.1 Nucleated Red Blood Cells # 0.0 Sodium Level 139 Potassium Level 3.7 Chloride Level 103 Carbon Dioxide Level 27 Anion Gap 13 Blood Urea Nitrogen 21 H Creatinine 0.97 Glucose Level 125 # Calcium Level 8.6 Bedside Glucose 116 Medications Medications Current Medications Aspirin (Aspirin) 81 mg DAILY PO Last administered on 02/10/17 10:28; Admin Dose 81 MG; Start 02/07/17 at 09:00 Nitroglycerin (Nitroglycerin (Sl Tab) 0.4 Mg) 1 tab Q5M PRN SL CHEST PAIN; Start 02/06/17 at 17:30 Acetaminophen (Tylenol Tab) 650 mg Q6H PRN PO PAIN LEVEL 1-3 OR FEVER Last administered on 02/09/17 23:36; Admin Dose 650 MG; Start 02/06/17 at 17:30 Diagnostic Test (Pha) (Accu-Chek) 1 ea 02 XX Last administered on 02/08/17 02 :20; Admin Dose 1 EA; Start 02/07/17 at 02:00 Morphine Sulfate (morphine) 6 mg Q4H PRN PO PAIN 7-10 Last administered on 20:59; Admin Dose 6 MG; Start 02/06/17 at 18:00 Miscellaneous Information 1 ea NOTE XX ; Start 02/06/17 at 18:30 Glucose (Glutose) 15 gm Q15M PRN PO DECREASED GLUCOSE; Start 02/06/17 at 18:30 Glucose (Glutose) 22.5 gm Q15M PRN PO DECREASED GLUCOSE; Start 02/06/17 at 18: 30 Dextrose (D50w Syringe) 25 ml Q15M PRN IV DECREASED GLUCOSE; Start 02/06/17 at 18:30 Dextrose (D50w Syringe) 50 ml Q15M PRN IV DECREASED GLUCOSE; Start 02/06/17 at 18:30 Glucagon (Glucagen) 1 mg Q15M PRN IM DECREASED GLUCOSE; Start 02/06/17 at 18: 30 Glucose (Glutose) 15 gm Q15M PRN BUCCAL DECREASED GLUCOSE; Start 02/06/17 at 18:30 Clopidogrel Bisulfate (plaVIX) 75 mg DAILY PO Last administered on 02/10/17 10:28; Admin Dose 75 MG; Start 02/07/17 at 15:00 Pantoprazole (Protonix Tab) 40 mg DAILY@06 PO Last administered on 02/09/17 08:17; Admin Dose 40 MG; Start 02/07/17 at 15:00 Cholecalciferol (Vitamin D) 2,000 unit DAILY PO Last administered on 10:28; Admin Dose 2,000 UNIT; Start 02/08/17 at 09:00 Metoprolol Tartrate (Lopressor) 25 mg BID PO Last administered on 02/10/17 10 :30; Admin Dose 25 MG; Start 02/07/17 at 21:00 Insulin Detemir (Levemir) 36 unit DAILY@20 SC Last administered on 02/09/17 21:18; Admin Dose 36 UNIT; Start 02/08/17 at 20:00 Linagliptin (Tradjenta) 5 mg DAILY PO Last administered on 02/10/17 10:30; Admin Dose 5 MG; Start 02/09/17 at 09:00 Atorvastatin Calcium (Lipitor) 20 mg HS PO Last administered on 02/09/17 21: 17; Admin Dose 20 MG; Start 02/09/17 at 21:00 Isosorbide Mononitrate 30 mg 30 mg DAILY PO Last administered on 02/10/17 10: 30; Admin Dose 30 MG; Start 02/09/17 at 16:30 Potassium Chloride/Sodium Chloride (KCl/NS) 165 ml @ 55 mls/hr ONCE ONCE IVPB ; Start 02/10/17 at 09:00; Stop 02/10/17 at 11:59 TAYA RYDER MD Feb 10, 2017 11:54
[2017-02-10] MEDS ORDERED: MAGNESIUM CITRATE 300 ML BTL PO ONE (14:30)
[2017-02-10] MEDS ORDERED: POLYETHYLENE GLYCOL 3350 119 GM POWDER PO ONE (14:30)
[2017-02-10] MEDS ORDERED: PEG/ELECTROLYTES 4L BTL PO ONE (14:30)
[2017-02-10 15:57] LABS: PROTIME 13.3 Sec (11.9-14.9)
[2017-02-10] MEDS ORDERED: POTASSIUM CHLORIDE (SR) 20 MEQ TAB PO STA (16:39)
--- NOTE | 2017-02-10 17:35 | CONS ---
DATE OF ADMISSION: 02/08/2017 DATE OF CONSULTATION: Dear Dr. Prado: Thank you for asking me to see Mr. Bailon in GI consultation. The patient, as you know, is a 61-year-old white gentleman admitted to the hospital because of chest pain. Following admission, the stress test was done by ____ . and apparently turned out to b e normal. From the GI standpoint, he has a history of rectal bleeding for the past several months a nd hence a consultation is requested. He has no history of nausea, no vomiting, no abdominal pain, no hematemesis. REVIEW OF SYSTEMS: Positive for diabetes, dyslipidemia, hypertension and he also had a coronary ashley nt placed in the past. He was evaluated at [facility]. He also was evaluated in [place]. MEDICATIONS PRIOR TO THE ADMISSION INCLUDE: 1. Aspirin. 2. Vitamin D. 3. Plavix. 4. Fish oil 5. Levemir. 6. Metformin. 7. Lopressor. 8. Humalog. 9. Januvia. 9. [place] 3 fatty acids. SOCIAL HISTORY: He does not smoke, does not smoke, does not drink alcohol. PHYSICAL EXAMINATION: GENERAL: The patient is a 61-year-old white gentleman. He is tall and well built. VITAL SIGNS: Blood pressure is 117/55, temperature 97.8, pulse is 68. CARDIOVASCULAR: Normal heart sounds. RESPIRATORY: Normal breath sounds. ABDOMEN: Shows soft abdomen. LABORATORY WORKUP: WBC 6200, hemoglobin 13.8, potassium 3.7. CPK 72, albumin 1.21, bilirubin 0.5, AST 14, ALT 63, potassium 4.1. Hemoglobin is 15.2 on admission as of the day of my consultation 14.8. CLINICAL IMPRESSION: The patient presenting with history of rectal bleeding, no coagulopathy noted. Rule out arteriovenous malformation, colorectal neoplasm, diverticulosis or hemorrhoids of the col on. Other medical history includes coronary artery disease, diabetes, hypertension. PLAN: At this time, recommend colonoscopy Once again, Dr. Prado, thank you for this consultation. Dictated By: RODRIGO LONDON/MARY Conf#: [id number] DID#: [id number] CC: RODRIGO ZALDIVAR MD; JAIDEN PRADO MD;*EndCC*
--- NOTE | 2017-02-10 20:33 | PN ---
Date/Time of Note Date/Time of Note DATE: 02/10/17 TIME: 20:32 Assessment/Plan Lines/Catheters IV Catheter Type (from Nrsg): Peripheral IV Urinary Cath still in place: No Assessment/Plan Assessment/Plan - Chest pain with radiation to bilateral jaw. Rule out acute coronary syndrome. Cardiac enzymes are negative 3. Dr. Pitts is following incardiology consultation. Continue aspirin and Plavix. Continue nitroglycerin p.r.n. for chest pain and morphine p.r.n. for chest pain. Zofran p.r.n. for nausea. - Rectal bleed, Dr. Mathis is asked to see patient in gastroenterology consultation. - Coronary artery disease, status post percutaneous transluminal coronary angiography and stent placement to right coronary artery in 06/2015. - Diabetes mellitus. Hemoglobin A1c 7.9. Continue Levemir and pre-meal NovoLog and NovoLog per mild algorithm sliding scale. Continue Januvia. - Hypertension. Continue metoprolol. - Dyslipidemia. Further recommendations based on clinical course. Plan of care discussed with Dr. Carson. Subjective 24 Hr Interval Summary Respiratory: no complaints Cardiovascular: no complaints Gastrointestinal: no complaints Exam/Review of Systems Vital Signs Vitals Vital Signs Date Time Temp Pulse Resp B/P Pulse Ox O2 Delivery O2 Flow Rate FiO2 02/10/17 16:11 78 02/10/17 15:50 97.9 16 101/59 96 02/10/17 04:00 Room Air Intake and Output 02/09/17 02/09/17 02/10/17 15:00 23:00 07:00 Intake Total 1000 ml 2200 ml Balance 1000 ml 2200 ml Exam Constitutional: alert Head: normocephalic ENMT: nl external ears & nose Respiratory: diminished breath sounds, normal air movement Cardiovascular: nl pulses Gastrointestinal: non-tender, soft Musculoskeletal: nl extremities to inspection Extremities: normal pulses Results Result Diagram: 02/10/17 0640 02/10/17 0640 Results 24 hrs Laboratory Tests Test 02/09/17 21:16 02/10/17 06:40 02/10/17 10:26 02/10/17 13:07 Bedside Glucose 167 116 156 White Blood Count 6.2 # Red Blood Count 4.44 L Hemoglobin 13.8 L Hematocrit 40.4 L Mean Corpuscular Volume 91.0 Mean Corpuscular Hemoglobin 31.1 Mean Corpuscular Hemoglobin Concent 34.2 Red Cell Distribution Width 13.3 Platelet Count 165 Mean Platelet Volume 10.0 Neutrophils % 57.3 Lymphocytes % 25.2 Monocytes % 10.7 Eosinophils % 5.5 Basophils % 1.0 Nucleated Red Blood Cells % 0.0 Neutrophils # 3.6 Lymphocytes # 1.6 Monocytes # 0.7 Eosinophils # 0.3 Basophils # 0.1 Nucleated Red Blood Cells # 0.0 Sodium Level 139 Potassium Level 3.7 Chloride Level 103 Carbon Dioxide Level 27 Anion Gap 13 Blood Urea Nitrogen 21 H Creatinine 0.97 Glucose Level 125 # Calcium Level 8.6 Test 02/10/17 15:05 02/10/17 18:34 Prothrombin Time 13.3 Prothrombin Time Ratio 1.0 INR International Normalized Ratio 1.00 Activated Partial Thromboplast Time 32.0 Bedside Glucose 246 H Medications Medications Current Medications Aspirin (Aspirin) 81 mg DAILY PO Last administered on 02/10/17 10:28; Admin Dose 81 MG; Start 02/07/17 at 09:00 Nitroglycerin (Nitroglycerin (Sl Tab) 0.4 Mg) 1 tab Q5M PRN SL CHEST PAIN; Start 02/06/17 at 17:30 Acetaminophen (Tylenol Tab) 650 mg Q6H PRN PO PAIN LEVEL 1-3 OR FEVER Last administered on 02/09/17 23:36; Admin Dose 650 MG; Start 02/06/17 at 17:30 Diagnostic Test (Pha) (Accu-Chek) 1 ea 02 XX Last administered on 02/08/17 02 :20; Admin Dose 1 EA; Start 02/07/17 at 02:00 Morphine Sulfate (morphine) 6 mg Q4H PRN PO PAIN 7-10 Last administered on 20:59; Admin Dose 6 MG; Start 02/06/17 at 18:00 Miscellaneous Information 1 ea NOTE XX ; Start 02/06/17 at 18:30 Glucose (Glutose) 15 gm Q15M PRN PO DECREASED GLUCOSE; Start 02/06/17 at 18:30 Glucose (Glutose) 22.5 gm Q15M PRN PO DECREASED GLUCOSE; Start 02/06/17 at 18: 30 Dextrose (D50w Syringe) 25 ml Q15M PRN IV DECREASED GLUCOSE; Start 02/06/17 at 18:30 Dextrose (D50w Syringe) 50 ml Q15M PRN IV DECREASED GLUCOSE; Start 02/06/17 at 18:30 Glucagon (Glucagen) 1 mg Q15M PRN IM DECREASED GLUCOSE; Start 02/06/17 at 18: 30 Glucose (Glutose) 15 gm Q15M PRN BUCCAL DECREASED GLUCOSE; Start 02/06/17 at 18:30 Clopidogrel Bisulfate (plaVIX) 75 mg DAILY PO Last administered on 02/10/17 10:28; Admin Dose 75 MG; Start 02/07/17 at 15:00 Pantoprazole (Protonix Tab) 40 mg DAILY@06 PO Last administered on 02/09/17 08:17; Admin Dose 40 MG; Start 02/07/17 at 15:00 Cholecalciferol (Vitamin D) 2,000 unit DAILY PO Last administered on 10:28; Admin Dose 2,000 UNIT; Start 02/08/17 at 09:00 Metoprolol Tartrate (Lopressor) 25 mg BID PO Last administered on 02/10/17 10 :30; Admin Dose 25 MG; Start 02/07/17 at 21:00 Insulin Detemir (Levemir) 36 unit DAILY@20 SC Last administered on 02/09/17 21:18; Admin Dose 36 UNIT; Start 02/08/17 at 20:00 Linagliptin (Tradjenta) 5 mg DAILY PO Last administered on 02/10/17 10:30; Admin Dose 5 MG; Start 02/09/17 at 09:00 Atorvastatin Calcium (Lipitor) 20 mg HS PO Last administered on 02/09/17 21: 17; Admin Dose 20 MG; Start 02/09/17 at 21:00 Isosorbide Mononitrate 30 mg 30 mg DAILY PO Last administered on 02/10/17 10: 30; Admin Dose 30 MG; Start 02/09/17 at 16:30 Potassium Chloride/Dextrose (KCl/D5W) 265 ml @ 88.333 mls/ hr ONCE PRN IVPB ONLY GIVE IF K <3.6 ON 02/11; Start 02/11/17 at 09:00; Stop 02/11/17 at 15:00 MELLY ESCOBEDO Feb 10, 2017 20:33
[2017-02-10] MEDS: ATORVASTATIN 20 MG TAB PO SCH (21:42)
[2017-02-10] MEDS: INSULIN DETEMIR [LEVEMIR] 3ML CART SC SCH (21:44)
[2017-02-11] VITALS (13 sets, daily range): BP systolic 117–145; BP diastolic 58–75; PULSE 71–89; RESP 14–24
[2017-02-11] MEDS: ACCU-CHEK XX SCH (02:00)
[2017-02-11] MEDS: ACETAMINOPHEN 325 MG TAB PO PRN (02:20)
[2017-02-11] MEDS: PANTOPRAZOLE (EC) 40 MG TAB PO SCH (05:29)
[2017-02-11 07:36] LABS: BASOPHIL # 0.1 10^3/ul (0.0-0.1); BASOPHILS % 0.9 % (0.0-2.0); EOSINOPHILS # 0.3 10^3/ul (0.0-0.5); EOSINOPHILS % 5.9 % (0.0-7.0); HEMATOCRIT 38.8 % (42.0-52.0); HEMOGLOBIN 13.3 g/dl (14.0-18.0); LYMPHOCYTES # 1.5 10^3/ul (0.8-2.9); MEAN CORPUSCULAR HEMOGLOBIN 31.3 pg (29.0-33.0); MEAN CORPUSCULAR HGB CONC 34.3 g/dl (32.0-37.0); MEAN CORPUSCULAR VOLUME 91.3 fl (82.0-101.0); MEAN PLATELET VOLUME 9.6 fl (7.4-10.4); MONOCYTE # 0.6 10^3/ul (0.3-0.9); MONOCYTES % 11.7 % (0.0-11.0); NEUTROPHILS % 54.1 % (39.0-77.0); PLATELET COUNT 158 10^3/UL (140-415); RED BLOOD COUNT 4.25 10^6/ul (4.70-6.10); RED CELL DISTRIBUTION WIDTH 13.6 % (11.5-14.5); WHITE BLOOD COUNT 5.5 10^3/ul (4.8-10.8)
[2017-02-11] MEDS: INSULIN ASPART [NOVOLOG] 3 ML PEN SC SCH ×4 (08:00→13:11)
[2017-02-11 08:02] LABS: ALBUMIN 3.4 g/dl (3.3-4.9); ALBUMIN/GLOBULIN RATIO 1.25; BILIRUBIN,INDIRECT 0.5 mg/dl (0-1.1); BILIRUBIN,TOTAL 0.5 mg/dl (0.2-1.3); CALCIUM 8.8 mg/dl (8.4-10.2); CREATININE 0.9 mg/dl (0.61-1.24); POTASSIUM 3.6 mmol/L (3.5-5.1); TOTAL PROTEIN 6.1 g/dl (6.1-8.1)
[2017-02-11] MEDS ORDERED: POTASSIUM CHLORIDE 30 MEQ in DEXTROSE 5% 250 ML IVPB PRN (09:00)
--- NOTE | 2017-02-11 09:24 | CONS ---
Date/Time of Note Date/Time of Note DATE: 02/11/17 TIME: 09:23 Assessment/Plan Assessment/Plan Additional Assessment/Plan 1. Chest pain. The patient reported episode of chest pain, has history of drug -eluting stenting in the past. We will risk stratify with a stress test, patient agrees.STRESS TEST NEGATIVE. 2. Hypertension. Blood pressure well optimized now. Continue to follow. BETTER NOW. 3. Abnormal EKG, nonspecific ST-T changes noted. There are no signs of acute ischemia here.Will await test results. 4. Diabetes. Continue diabetic optimization and care. 5. GI eval - prep now, OK for colonoscopy- LIKELY TODAY or tomorrow. Consultation Date/Type/Reason Admit Date/Time Feb 08, 2017 at 10:37 Type of Consultation: cardiology Referring Provider: JAIDEN PRADO MD 24 HR Interval Summary Free Text/Dictation NO acute events - BP in good range now. ROS: No fever, no chills, no nausea, no vomiting, no diarrhea/constipation No recent weight changes No chest pain, no PND, no orthopnea No dizziness, blurred vision No thirst, no heat or cold intolerance Exam/Review of Systems Vital Signs Vitals Vital Signs Date Time Temp Pulse Resp B/P Pulse Ox O2 Delivery O2 Flow Rate FiO2 02/11/17 08:12 74 02/11/17 08:11 97.7 18 119/60 94 02/10/17 04:00 Room Air Intake and Output 02/10/17 02/10/17 02/11/17 15:00 23:00 07:00 Intake Total 1250 ml Balance 1250 ml Exam General: WN/WD/NAD, AOx 3 HEENT: Unicetric/atraumatic/EOMI (followa commands) NECK: JVD elevated, no thyromegaly Lymph: no lymphadenopathy HEART: regular with no S3, II/ systolic murmur at apex LUNGS: Coarse sounds ABD: soft, NT, ND, +BS : Intact Neuro: non focal SKIN: chronic changes EXT: trace edema Results Result Diagram: 02/11/17 0659 02/11/17 0659 Results 24 hrs Laboratory Tests Test 02/10/17 10:26 02/10/17 13:07 02/10/17 15:05 02/10/17 18:34 Bedside Glucose 116 156 246 H Prothrombin Time 13.3 Prothrombin Time Ratio 1.0 INR International Normalized Ratio 1.00 Activated Partial Thromboplast Time 32.0 Test 02/10/17 21:42 02/11/17 06:59 02/11/17 09:09 Bedside Glucose 173 98 White Blood Count 5.5 Red Blood Count 4.25 L Hemoglobin 13.3 L Hematocrit 38.8 L Mean Corpuscular Volume 91.3 Mean Corpuscular Hemoglobin 31.3 Mean Corpuscular Hemoglobin Concent 34.3 Red Cell Distribution Width 13.6 Platelet Count 158 Mean Platelet Volume 9.6 Neutrophils % 54.1 Lymphocytes % 27.0 Monocytes % 11.7 H Eosinophils % 5.9 Basophils % 0.9 Nucleated Red Blood Cells % 0.0 Neutrophils # 3.0 Lymphocytes # 1.5 Monocytes # 0.6 Eosinophils # 0.3 Basophils # 0.1 Nucleated Red Blood Cells # 0.0 Sodium Level 141 Potassium Level 3.6 Chloride Level 104 Carbon Dioxide Level 27 Anion Gap 14 Blood Urea Nitrogen 13 Creatinine 0.90 Glucose Level 110 Calcium Level 8.8 Total Bilirubin 0.5 Direct Bilirubin 0.00 Indirect Bilirubin 0.5 Aspartate Amino Transf (AST/SGOT) 42 Alanine Aminotransferase (ALT/SGPT) 63 Alkaline Phosphatase 78 Total Protein 6.1 Albumin 3.4 Globulin 2.70 Albumin/Globulin Ratio 1.25 Medications Medications Current Medications Aspirin (Aspirin) 81 mg DAILY PO Last administered on 02/10/17 10:28; Admin Dose 81 MG; Start 02/07/17 at 09:00 Nitroglycerin (Nitroglycerin (Sl Tab) 0.4 Mg) 1 tab Q5M PRN SL CHEST PAIN; Start 02/06/17 at 17:30 Acetaminophen (Tylenol Tab) 650 mg Q6H PRN PO PAIN LEVEL 1-3 OR FEVER Last administered on 02/11/17 02:20; Admin Dose 650 MG; Start 02/06/17 at 17:30 Diagnostic Test (Pha) (Accu-Chek) 1 ea 02 XX Last administered on 02/08/17 02 :20; Admin Dose 1 EA; Start 02/07/17 at 02:00 Morphine Sulfate (morphine) 6 mg Q4H PRN PO PAIN 7-10 Last administered on 20:59; Admin Dose 6 MG; Start 02/06/17 at 18:00 Miscellaneous Information 1 ea NOTE XX ; Start 02/06/17 at 18:30 Glucose (Glutose) 15 gm Q15M PRN PO DECREASED GLUCOSE; Start 02/06/17 at 18:30 Glucose (Glutose) 22.5 gm Q15M PRN PO DECREASED GLUCOSE; Start 02/06/17 at 18: 30 Dextrose (D50w Syringe) 25 ml Q15M PRN IV DECREASED GLUCOSE; Start 02/06/17 at 18:30 Dextrose (D50w Syringe) 50 ml Q15M PRN IV DECREASED GLUCOSE; Start 02/06/17 at 18:30 Glucagon (Glucagen) 1 mg Q15M PRN IM DECREASED GLUCOSE; Start 02/06/17 at 18: 30 Glucose (Glutose) 15 gm Q15M PRN BUCCAL DECREASED GLUCOSE; Start 02/06/17 at 18:30 Clopidogrel Bisulfate (plaVIX) 75 mg DAILY PO Last administered on 02/10/17 10:28; Admin Dose 75 MG; Start 02/07/17 at 15:00 Pantoprazole (Protonix Tab) 40 mg DAILY@06 PO Last administered on 02/09/17 08:17; Admin Dose 40 MG; Start 02/07/17 at 15:00 Cholecalciferol (Vitamin D) 2,000 unit DAILY PO Last administered on 10:28; Admin Dose 2,000 UNIT; Start 02/08/17 at 09:00 Metoprolol Tartrate (Lopressor) 25 mg BID PO Last administered on 02/10/17 10 :30; Admin Dose 25 MG; Start 02/07/17 at 21:00 Insulin Detemir (Levemir) 36 unit DAILY@20 SC Last administered on 02/10/17 21:44; Admin Dose 36 UNIT; Start 02/08/17 at 20:00 Linagliptin (Tradjenta) 5 mg DAILY PO Last administered on 02/10/17 10:30; Admin Dose 5 MG; Start 02/09/17 at 09:00 Atorvastatin Calcium (Lipitor) 20 mg HS PO Last administered on 02/10/17 21: 42; Admin Dose 20 MG; Start 02/09/17 at 21:00 Isosorbide Mononitrate 30 mg 30 mg DAILY PO Last administered on 02/10/17 10: 30; Admin Dose 30 MG; Start 02/09/17 at 16:30 Potassium Chloride/Dextrose (KCl/D5W) 265 ml @ 88.333 mls/ hr ONCE PRN IVPB ONLY GIVE IF K <3.6 ON 02/11; Start 02/11/17 at 09:00; Stop 02/11/17 at 15:00 ; Status Future Hold TAYA RYDER MD Feb 11, 2017 09:24
[2017-02-11] MEDS ORDERED: PROPOFOL 20 ML ONE (10:11)
[2017-02-11] MEDS ORDERED: FENTAnyl 50 MCG/ML VIAL ONE (10:11)
[2017-02-11] MEDS ORDERED: MIDAZOLAM 1 MG/ML 2 ML INJ ONE (10:11)
[2017-02-11] MEDS ORDERED: ONDANSETRON 4 MG INJ IV PRN (10:30)
--- NOTE | 2017-02-11 10:44 | OPPN ---
Date/Time of Note Date/Time of Note DATE: 02/11/17 TIME: 10:42 Proc Note GI Procedure Date [id number]/17/17 Indication: diagnostic Pre-procedure Diagnosis rectal bleeding Post-procedure Diagnosis hemorrhoids Procedure Performed: Colonoscopy Surgeon see signature line Copywriting Intern none Anesthesia Type: MAC Tourniquet Time none EBL none Transfusion required none Biopsy 1: none Grafts/Implants none Tubes/Drains none Complication(s) none Procedure Description under mac colonoscopy performed it revealed hemorrhoids RODRIGO ZALDIVAR MD Feb 11, 2017 10:44
[2017-02-11] MEDS: CHOLECALCIFEROL 2,000 UNIT CAP PO SCH (11:49)
[2017-02-11] MEDS: ASPIRIN 81 MG TAB PO SCH (11:49)
[2017-02-11] MEDS: LINAGLIPTIN 5 MG TABLET PO SCH (11:49)
[2017-02-11] MEDS: CLOPIDOGREL 75 MG TAB PO SCH (11:50)
[2017-02-11] MEDS: METOPROLOL 25 MG TAB PO SCH (11:50)
[2017-02-11] MEDS: ISOSORBIDE MONONITRATE(SR)30 MG TAB PO SCH (11:50)
--- NOTE | 2017-02-11 14:49 | PN ---
Date/Time of Note Date/Time of Note DATE: 02/11/17 TIME: 14:47 Assessment/Plan Lines/Catheters IV Catheter Type (from Nrsg): Peripheral IV Urinary Cath still in place: No Subjective 24 Hr Interval Summary Free Text/Dictation - Chest pain with radiation to bilateral jaw. Rule out acute coronary syndrome. Cardiac enzymes are negative 3. Dr. Pitts is following incardiology consultation. Continue aspirin and Plavix. Continue nitroglycerin p.r.n. for chest pain and morphine p.r.n. for chest pain. Zofran p.r.n. for nausea. - Rectal bleed, Dr. Mathis is asked to see patient in gastroenterology consultation. - sp colonoscopy - Coronary artery disease, status post percutaneous transluminal coronary angiography and stent placement to right coronary artery in 06/2015. - Diabetes mellitus. Hemoglobin A1c 7.9. Continue Levemir and pre-meal NovoLog and NovoLog per mild algorithm sliding scale. Continue Januvia. - Hypertension. Continue metoprolol. - Dyslipidemia. Further recommendations based on clinical course. Plan of care discussed with Dr. Carson. Exam/Review of Systems Vital Signs Vitals Vital Signs Date Time Temp Pulse Resp B/P Pulse Ox O2 Delivery O2 Flow Rate FiO2 02/11/17 12:18 98.3 65 18 117/58 98 02/11/17 11:10 Room Air Intake and Output 02/10/17 02/10/17 02/11/17 15:00 23:00 07:00 Intake Total 1250 ml Balance 1250 ml Results Result Diagram: 02/11/17 0659 02/11/17 0659 Results 24 hrs Laboratory Tests Test 02/10/17 15:05 02/10/17 18:34 02/10/17 21:42 02/11/17 06:59 Prothrombin Time 13.3 Prothrombin Time Ratio 1.0 INR International Normalized Ratio 1.00 Activated Partial Thromboplast Time 32.0 Bedside Glucose 246 H 173 White Blood Count 5.5 Red Blood Count 4.25 L Hemoglobin 13.3 L Hematocrit 38.8 L Mean Corpuscular Volume 91.3 Mean Corpuscular Hemoglobin 31.3 Mean Corpuscular Hemoglobin Concent 34.3 Red Cell Distribution Width 13.6 Platelet Count 158 Mean Platelet Volume 9.6 Neutrophils % 54.1 Lymphocytes % 27.0 Monocytes % 11.7 H Eosinophils % 5.9 Basophils % 0.9 Nucleated Red Blood Cells % 0.0 Neutrophils # 3.0 Lymphocytes # 1.5 Monocytes # 0.6 Eosinophils # 0.3 Basophils # 0.1 Nucleated Red Blood Cells # 0.0 Sodium Level 141 Potassium Level 3.6 Chloride Level 104 Carbon Dioxide Level 27 Anion Gap 14 Blood Urea Nitrogen 13 Creatinine 0.90 Glucose Level 110 Calcium Level 8.8 Total Bilirubin 0.5 Direct Bilirubin 0.00 Indirect Bilirubin 0.5 Aspartate Amino Transf (AST/SGOT) 42 Alanine Aminotransferase (ALT/SGPT) 63 Alkaline Phosphatase 78 Total Protein 6.1 Albumin 3.4 Globulin 2.70 Albumin/Globulin Ratio 1.25 Test 02/11/17 09:09 02/11/17 11:53 Bedside Glucose 98 153 Medications Medications Current Medications Aspirin (Aspirin) 81 mg DAILY PO Last administered on 02/11/17 11:49; Admin Dose 81 MG; Start 02/07/17 at 09:00 Nitroglycerin (Nitroglycerin (Sl Tab) 0.4 Mg) 1 tab Q5M PRN SL CHEST PAIN; Start 02/06/17 at 17:30 Acetaminophen (Tylenol Tab) 650 mg Q6H PRN PO PAIN LEVEL 1-3 OR FEVER Last administered on 02/11/17 02:20; Admin Dose 650 MG; Start 02/06/17 at 17:30 Diagnostic Test (Pha) (Accu-Chek) 1 ea 02 XX Last administered on 02/08/17 02 :20; Admin Dose 1 EA; Start 02/07/17 at 02:00 Morphine Sulfate (morphine) 6 mg Q4H PRN PO PAIN 7-10 Last administered on 20:59; Admin Dose 6 MG; Start 02/06/17 at 18:00 Miscellaneous Information 1 ea NOTE XX ; Start 02/06/17 at 18:30 Glucose (Glutose) 15 gm Q15M PRN PO DECREASED GLUCOSE; Start 02/06/17 at 18:30 Glucose (Glutose) 22.5 gm Q15M PRN PO DECREASED GLUCOSE; Start 02/06/17 at 18: 30 Dextrose (D50w Syringe) 25 ml Q15M PRN IV DECREASED GLUCOSE; Start 02/06/17 at 18:30 Dextrose (D50w Syringe) 50 ml Q15M PRN IV DECREASED GLUCOSE; Start 02/06/17 at 18:30 Glucagon (Glucagen) 1 mg Q15M PRN IM DECREASED GLUCOSE; Start 02/06/17 at 18: 30 Glucose (Glutose) 15 gm Q15M PRN BUCCAL DECREASED GLUCOSE; Start 02/06/17 at 18:30 Clopidogrel Bisulfate (plaVIX) 75 mg DAILY PO Last administered on 02/11/17 11:50; Admin Dose 75 MG; Start 02/07/17 at 15:00 Pantoprazole (Protonix Tab) 40 mg DAILY@06 PO Last administered on 02/09/17 08:17; Admin Dose 40 MG; Start 02/07/17 at 15:00 Cholecalciferol (Vitamin D) 2,000 unit DAILY PO Last administered on 11:49; Admin Dose 2,000 UNIT; Start 02/08/17 at 09:00 Metoprolol Tartrate (Lopressor) 25 mg BID PO Last administered on 02/11/17 11 :50; Admin Dose 25 MG; Start 02/07/17 at 21:00 Insulin Detemir (Levemir) 36 unit DAILY@20 SC Last administered on 02/10/17 21:44; Admin Dose 36 UNIT; Start 02/08/17 at 20:00 Linagliptin (Tradjenta) 5 mg DAILY PO Last administered on 02/11/17 11:49; Admin Dose 5 MG; Start 02/09/17 at 09:00 Atorvastatin Calcium (Lipitor) 20 mg HS PO Last administered on 02/10/17 21: 42; Admin Dose 20 MG; Start 02/09/17 at 21:00 Isosorbide Mononitrate 30 mg 30 mg DAILY PO Last administered on 02/11/17 11: 50; Admin Dose 30 MG; Start 02/09/17 at 16:30 Potassium Chloride/Dextrose (KCl/D5W) 265 ml @ 88.333 mls/ hr ONCE PRN IVPB ONLY GIVE IF K <3.6 ON 02/11; Start 02/11/17 at 09:00; Stop 02/11/17 at 15:00 ; Status Future Hold MELLY ESCOBEDO Feb 11, 2017 14:49
--- NOTE | 2017-02-11 15:14 | PDOCDIS ---
Discharge Instructions CONDITION Patient Condition: Stable HOME CARE INSTRUCTIONS: Special Diet: CARB CONT ACTIVITY: Activity Restrictions: Slowly Increase Activity Rest between Activity Avoid heavy lifting Do not Drive Do not operate Machinery Do not operate Power Tool Avoid Heavy Housework Bathing Restrictions: Sponge Bath FOLLOW UP/APPOINTMENTS Follow-up Plan Follow up with Primary MD X 1 WEEK FU with GI/Cardiology as recommended Call 911 or go to the nearest hospital if symptoms get worse Patient verbalized understanding DC instructions. Gui Carson/staff MELLY ESCOBEDO Feb 11, 2017 15:14
[2017-02-11] MEDS ORDERED: ISOS30TA5 PO (15:21)
[2017-02-11] MEDS ORDERED: INSU100I27 SC (15:21)
[2017-02-11] MEDS ORDERED: LINA5TAB PO (15:21)
--- NOTE | 2017-02-11 15:38 | GILP ---
DATE OF PROCEDURE: PROCEDURE: Colonoscopy. PREOPERATIVE DIAGNOSIS: Patient presenting with history of rectal bleeding periodically. Rule out colorectal neoplasm, hemorrhoids, arteriovenous malformation, diverticulosis. POSTOPERATIVE DIAGNOSES: Moderate degree of internal and external hemorrhoids. DESCRIPTION OF PROCEDURE: After the informed written consent was obtained, the patient was asked to lie on the left lateral side. Intravenous anesthesia was given by anesthesiologist, Dr. Braxton . When the patient became somnolent, the Olympus video colonoscope was introduced into the rectum a nd scope was advanced all the way to the cecum. The entire colon appeared perfectly normal, no muco salbador abnormality detected. On the way out, careful evaluation was carried out and retroflexion was p erformed. Minimal internal hemorrhoids and moderate degree of external hemorrhoids were noted and t he procedure was terminated. PLAN: Recommend Anusol-HC suppositories 1 into the rectum twice a day and also ProctoCream HC to th e anus twice a day. Dictated By: RODRIGO LONDON/MARY Conf#: [id number] DID#: [id number] CC: JAIDEN PRADO MD;*EndCC*
--- NOTE | 2017-02-12 06:37 | PN ---
DATE: 02/10/2017 The patient was scheduled to have a colonoscopy today, but it could not be done because the preparat ion was not clean. PHYSICAL EXAMINATION: Unremarkable. IMPRESSION: Rectal bleeding. PLAN: Recommend colonoscopy with a better preparation tomorrow. Dictated By: RODRIGO ZALDIVAR MD NC/NTS Conf#: [id number] DID#: [id number] CC: JAIDEN PRADO MD;*EndCC*
== END 2017-02-11 15:55 | disposition home or self-care (01) | DRG 313 ==
LOC: MS4 16:37 → INTOOBSV 16:37 → MS4 16:44 → OBSVTOIN 02-08 10:37
PROVIDERS: ADMIT Internal Medicine; ATTEND Internal Medicine
PROC: 0DJD8ZZ Inspection of Lower Intestinal Tract, Via Natural or Artificial Opening Endoscopic (ICD-10-PCS; principal; 2017-02-11 10:00)
DX: R07.9 Chest pain, unspecified (principal); I42.9 Cardiomyopathy, unspecified; K62.5 Hemorrhage of anus and rectum; Z95.1 Presence of aortocoronary bypass graft; I10 Essential (primary) hypertension; Z95.5 Presence of coronary angioplasty implant and graft; E11.9 Type 2 diabetes mellitus without complications; E78.5 Hyperlipidemia, unspecified; K64.9 Unspecified hemorrhoids; R68.84 Jaw pain
CPT/HCPCS: 71010; 78452; 80048; 80053; 82270; 82550; 82553; 82962; 83036; 83735; 84132; 84443; 84484; 85025; 85049; 85610; 85670; 85730; 93005; 93017; 99217; G0378; A9500; A9505; J1650; J1815; J2250; J2785; J3010; J7070

== ENCOUNTER 2017-06-30 15:28 | Observation (INO) | END 2017-07-03 19:05 | disposition home or self-care (01) ==

== ENCOUNTER 2018-09-13 17:12 | Emergency (ER) | payer OTHER ==
[~2018-09-13] VITALS: Wt 91.0 kg
[~2018-09-13 17:12] MED LIST changes: +ATOR40TA68 PO; +CLOP75TA19 PO; -CLOP75TA27 PO; +EMPA1TAB PO; +GLIM4TAB PO; -INSU100C SC; +INSU100I12 SQ; +INSU100I27 SQ; -LEVEM SC; -METF1000 PO; +METF100010 PO; +METO-335 PO; -METO-448 PO; -OMEG-135 PO; -OMEG500C PO; +SITA100T11 PO; -SITA100T8 PO
--- NOTE | 2018-09-13 20:31 | ERD ---
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 The patient had a routine opht halmological exam just prior to arrival. His eyes were dilated. His plastic extruding machine operator was concerned for a unilateral papilledema on the left-hand side. The patient however denies a headache. He said no fevers or shaking no chills. He denies any changes in vision. He said no nausea vomiting or ab dominal pain. ROS All systems reviewed and are negative except as per history of present illness. Medications Home Meds Reported Medications Cholecalciferol (Vitamin D3) (VITAMIN D-3) 2,000 Unit Capsule, 2000 UNIT PO DAILY, CAP 06/30/17 Empagliflozin/Linagliptin (Glyxambi 25 mg-5 mg Tablet) 1 Each Tablet, 1 EACH PO DAILY, TAB 06/30/17 Sitagliptin* (Januvia*) 100 Mg Tablet, 100 MG PO DAILY, #30 TAB 06/30/17 Insulin Detemir (Levemir Flextouch) 100 Unit/1 Ml Insuln.pen, 80 UNIT SQ DAILY 06/30/17 Metoprolol Succinate* (Toprol XL*) 25 Mg Tab.sr.24h, 25 MG PO DAILY, #30 TAB 06/30/17 Metformin Hcl* (Metformin Hcl*) 1,000 Mg Tablet, 1000 MG PO WITH BREAKFAST DINNE, #60 TAB 06/30/17 Clopidogrel Bisulfate* (Clopidogrel Bisulfate*) 75 Mg Tablet, 75 MG PO DAILY, #30 TAB 06/30/17 Insulin Lispro (Humalog Kwikpen U-100) 100 Unit/1 Ml Insuln.pen, 0 SQ SLIDING SCALE, EA 06/30/17 Atorvastatin* (Atorvastatin*) 40 Mg Tablet, 40 MG PO QHS, #30 TAB 06/30/17 Glimepiride* (Glimepiride*) 4 Mg Tablet, 4 MG PO WITH BREAKFAST DINNE, TAB 06/30/17 Aspirin* (Aspirin* EC) 325 Mg Tab, 325 MG PO DAILY, TAB 06/30/17 Allergies Allergies: Coded Allergies: No Known Allergy (Unverified , 06/30/17) PMhx/Soc History of Surgery: Yes (HERNIA REPAIR) Anesthesia Reaction: No Hx Neurological Disorder: No Hx Respiratory Disorders: No Hx Cardiac Disorders: Yes (HTN, DYSLIPIDEMIA, CAD, PTCA 06/2015) Hx Psychiatric Problems: Yes (ANXIETY) Hx Miscellaneous Medical Probl: Yes (SLEEP APNEA) Hx Alcohol Use: No Hx Substance Use: No Hx Tobacco Use: No Smoking Status: Never smoker Physical Exam Vitals Vital Signs Date Temp Pulse Resp B/P (MAP) Pulse Ox O2 O2 Flow FiO2 Time Delivery Rate 09/13/18 98.9 77 18 134/82 99 21:38 (99) 09/13/18 98.9 70 18 137/71 99 19:59 (93) 09/13/18 98.9 75 18 152/67 99 18:56 (95) 09/13/18 98.9 79 18 152/67 99 17:14 (95) Physical Exam Constitutional:Well-developed. Well-nourished. HEENT:Normocephalic. Atraumatic.Pupils were dilated at 5 mm bilaterally. Venous pulsations were present. No papilledema was appreciated.. Moist mucous membranes.No tonsillar exudates. Respiratory: Not using accessory muscles of respiration.Lungs were clear to auscultation bilaterally. No rhonchi. No rales. No wheezing. Cardiovascular: Regular rate regular rhythm.No murmurs. No rubs were appreciated.S1, S2 normal. Distal pulses are palpable 2+ bilaterally. Skin: No petechia, no purpura. No lesions on the palms or the soles of the feet. No maculopapular rash. NEURO: Patient was alert, awake, orientated x3.No facial droop. Gait observed and normal with no ataxia.Speech had regular rate and rhythm. No focal neurological deficits. Result Diagram: 09/13/[id number]/[id number] Results 24 hrs Laboratory Tests Test 09/13/18 18:53 White Blood Count 5.5 10^3/ul Red Blood Count 4.70 10^6/ul Hemoglobin 14.5 g/dl Hematocrit 43.3 % Mean Corpuscular Volume 92.1 fl Mean Corpuscular Hemoglobin 30.9 pg Mean Corpuscular Hemoglobin Concent 33.5 g/dl Red Cell Distribution Width 13.1 % Platelet Count 178 10^3/UL Mean Platelet Volume 9.5 fl Immature Granulocytes % 0.500 % Neutrophils % 59.8 % Lymphocytes % 24.5 % Monocytes % 8.6 % Eosinophils % 5.5 % Basophils % 1.1 % Nucleated Red Blood Cells % 0.0 /100WBC Immature Granulocytes # 0.030 10^3/ul Neutrophils # 3.3 10^3/ul Lymphocytes # 1.3 10^3/ul Monocytes # 0.5 10^3/ul Eosinophils # 0.3 10^3/ul Basophils # 0.1 10^3/ul Nucleated Red Blood Cells # 0.0 10^3/ul Prothrombin Time 12.2 Sec Prothrombin Time Ratio 1.0 INR International Normalized Ratio 0.89 Activated Partial Thromboplast Time 30.3 Sec Sodium Level 143 mmol/L Potassium Level 4.6 mmol/L Chloride Level 106 mmol/L Carbon Dioxide Level 26 mmol/L Anion Gap 11 Blood Urea Nitrogen 17 mg/dl Creatinine 1.00 mg/dl Est Glomerular Filtrat Rate mL/min > 60 mL/min Glucose Level 117 mg/dl Calcium Level 9.9 mg/dl Total Bilirubin 0.5 mg/dl Direct Bilirubin 0.00 mg/dl Indirect Bilirubin 0.5 mg/dl Aspartate Amino Transf (AST/SGOT) 43 IU/L Alanine Aminotransferase (ALT/SGPT) 54 IU/L Alkaline Phosphatase 70 IU/L Total Protein 8.0 g/dl Albumin 4.5 g/dl Globulin 3.50 g/dl Albumin/Globulin Ratio 1.28 Procedures/MDM This is a 62-year-old male that presented to the emergency department with concerns of papilledema that his plastic extruding machine operator thought that she had seen unil aterally on the left. On physical exam I did not appreciate papilledema. The patient did not complain of headaches. My clinical suspicion was low for etiopathic intracranial hypertension. I did indicate to the patient that the only way to truly diagnose this would be with a lumbar puncture but I did not feel this was appropriate at this time again as my clinical suspicion was low for pseudotumor cerebri. The patient did add further history that over the past several months he felt sometimes unsteady in his gait. This was intermittent. His primary care physician has scheduled him to see neurologist in the next week. He has not experienced any urinary incontinence. I did obtain a CT scan of his head and there is no evidence of normal pressure hydrocephalus as a CT scan of his head was normal. The patient did not have an ataxic gait on physical examination. Again the patient did not complain of any changes in vision or headaches. There is no severe electrolyte abnormalities. No leukocytosis. The patient was discharged home in fair condition. They were instructed to return to the emergency department at any time if there was any worsening of their condition. The patient stated they would follow up with their PCP in the next 24-48 hours to initiate a suitable medication regimen under the care of their PCP as well as to allow their PCP to monitor any drug reactions. The patient was discharged home with prescriptions after they gave informed consent to the new medication. They were also fully informed by myself on the adverse effects and adverse drug interactions in order to provide adequate safeguards to prevent possible adverse reactions to medications. Departure Diagnosis: Primary Impression: Eye problem Condition: CORETTA Damon MD Sep 13, 2018 20:31
[2018-09-13 21:38] VITALS: BP 134/82; PULSE 77; RESP 18
== END 2018-09-13 21:39 | disposition home or self-care (01) ==
LOC: E/R 17:12
DX: H47.10 Unspecified papilledema (principal); I25.10 Atherosclerotic heart disease of native coronary artery without angina pectoris; I10 Essential (primary) hypertension; E11.9 Type 2 diabetes mellitus without complications; R51 Headache; Z79.82 Long term (current) use of aspirin; Z79.4 Long term (current) use of insulin; Z79.01 Long term (current) use of anticoagulants
CPT/HCPCS: 70450; 80053; 85025; 85610; 85730; Z7502